=== PATIENT | female | born 1955 | race Caucasian/White ===

== ENCOUNTER 2018-08-12 16:22 | Outpatient (REF) | payer OTHER, SELFPAY ==
--- NOTE | 2018-08-12 14:45 | SKI_PTH ---
PATIENT: Tonie Poole LOC: [facility] #:[id number] AGE/SX: 63/F ROOM: RE08/12/[address]: Viki Roberts : 1955 BED: DIS: 08/12/2018 SPEC #: [id number] RECD: 08/13/18 12:28 STATUS: [place] REQ #: [id number] ANGELES: 08/12/18 14:[address]: Viki Roberts DEPT: Surgical Specimen RECD BY: Lizet Pierce ENTERED: 08/13/18 12:29 SP TYPE: DORCAS MARTIN DR: Emelia Morales Tissues: 1 - SKIN BIOPSY(SHAVE/PUNCH) 2 - SKIN BIOPSY(SHAVE/PUNCH) Procedures: SKIN LEVEL 4 SPECIAL STAIN 1 Comments: [id number]
== END 2018-08-12 16:42 ==
LOC: NCHCN 16:22
PROVIDERS: Visit Provider Nurse Practitioner Family
DX: L98.6 Other infiltrative disorders of the skin and subcutaneous tissue (principal)
CPT/HCPCS: 88305; 88312

== ENCOUNTER 2018-08-26 00:40 | Outpatient (CLI) | payer OTHER, SELFPAY ==
--- NOTE | 2018-08-26 09:26 | DI.RAD_ITS ---
SYMPTOM/DIAGNOSIS: CUTANEOUS SARCOIDOSIS D86.3 PA AND LATERAL CHEST: Comparison is made with 1994. The heart is normal in size. The lungs are clear. The mediastinal structures and pleura appear intact. CONCLUSION: Normal chest.
== END 2018-08-26 01:00 ==
PROVIDERS: Visit Provider Nurse Practitioner Family
DX: D86.3 Sarcoidosis of skin (principal)
CPT/HCPCS: 71046

== ENCOUNTER 2018-08-26 01:14 | Outpatient (CLI) | payer OTHER, SELFPAY ==
--- NOTE | 2018-08-26 06:26 | PFT_ITS ---
PULMONARY FUNCTION TEST REPORT NOTE PLEASE SEE SCANNED DOCUMENTS FOR MORE DETAIL Patient - Tonie Poole DATE OF - 1955 DATE OF SERVICE August 26, 2018 REQUESTING PROVIDER Viki Roberts NP INTERPRETATION OF STUDY Spirometry shows borderline mild obstructive airways disease. May represent a normal variant. No significant bronchodilator response. LUNG VOLUMES - Lung volumes show no evidence of restriction. DIFFUSION CAPACITY- Normal. AIRWAY RESISTANCE - Normal. IMPRESSION Likely overall normal pulmonary function study. Clinical correlation recommended. There may be borderline mild obstruction, but based on the patient' s age, this pulmonary function study is likely considered to be completely normal. Gina Howard M.D. JUSTUS/ciaran T - 08/26/2018 SEE SCANNED DOCUMENT IN THE EMR FOR DATA AND GRAPHS
[2018-08-26] MEDS: Inhaler, Assist Device 1 EACH MC (08:45)
[2018-08-26] MEDS: Albuterol HFA 18 GM 200 PUFF INH IH (08:46)
== END 2018-08-26 01:34 ==
PROVIDERS: Referring Provider Nurse Practitioner Family; Visit Provider Nurse Practitioner Family
DX: D86.3 Sarcoidosis of skin (principal); G47.39 Other sleep apnea; R51 Headache; E66.9 Obesity, unspecified
CPT/HCPCS: 94060; 94150; 94726; 94729

== ENCOUNTER 2018-08-27 16:35 | Outpatient (REF) | payer OTHER, SELFPAY ==
[2018-08-27 22:08] LABS: Abs Immature Grans 0.01 k/cumm (0.0-0.09); Absolute Basophil Count 0.05 k/cumm (0.0-0.2); Absolute Eosinophil Count 0.06 k/cumm (0.0-0.7); Absolute Monocyte Count 0.37 k/cumm (0.11-0.7); Absolute Neutrophil Count 4.39 k/cumm (1.2-6.7); Basophils % 0.8; HGB 11.8 g/dL (12.0-15.5); Immature Grans % 0.2; Mean Corp. HGB Concentration 32.8 g/dL (32.0-36.0); Mean Corpuscular Hemoglobin 31.1 pg (27.0-33.0); Mean Platelet Volume 10.8 fL (8.0-11.0); Platelet Count 255 x1000/uL (130-400); RBC 3.79 m/cumm (4.00-5.20); RBC Distribution Width 13.4 % (11.7-14.6); White Blood Cell Count 6.18 k/cumm (4.4-10.8)
[2018-08-27 22:47] LABS: ALT 27 U/L (12-78); AST 20 U/L (15-37); Albumin 3.6 g/dL (3.4-5.0); Alkaline Phosphatase 58 U/L (46-116); Anion Gap 10.5 mmol/L (3-11); BUN 15 mg/dL (7-18); Bilirubin, Total 0.3 mg/dL (0.2-1.0); CO2 27.5 mmol/L (21.0-32.0); CREATININE 0.75 mg/dL (0.55-1.02); Calcium 9.1 mg/dL (8.5-10.1); Chloride 101 mmol/L (98-107); Glucose 111 mg/dL (70-100); Potassium 4.5 mmol/L (3.5-5.1); Sodium 139 mmol/L (136-145)
== END 2018-08-27 16:55 ==
LOC: NCHCN 16:35
PROVIDERS: Visit Provider Nurse Practitioner Family
DX: R51 Headache (principal); R21 Rash and other nonspecific skin eruption; D86.3 Sarcoidosis of skin; E66.9 Obesity, unspecified
CPT/HCPCS: 80053; 85025

== ENCOUNTER 2019-02-27 15:08 | Outpatient (REF) | payer OTHER, SELFPAY ==
--- NOTE | 2019-02-27 14:15 | SKI_PTH ---
PATIENT: Tonie Poole LOC: [facility]N U#:[id number] AGE/SX: 63/F ROOM: RE02/27/[address]: Viki Roberts : 1955 BED: DIS: 02/27/2019 SPEC #: [id number] RECD: 02/28/19 12:33 STATUS: [place] REShasha #: [id number] ANGELES: 02/27/19 14:[address]: Viki Roberts DEPT: Surgical Specimen RECD BY: Lizet Pierce ENTERED: 02/28/19 12:34 SP TYPE: DORCAS MARTIN DR: Emelia Morales Tissues: 1 - SKIN BIOPSY(SHAVE/PUNCH) Procedures: SKIN LEVEL 4 Comments: [id number]
== END 2019-02-27 15:28 ==
LOC: NCHCN 15:08
PROVIDERS: Visit Provider Nurse Practitioner Family
DX: L43.8 Other lichen planus (principal)
CPT/HCPCS: 88305

== ENCOUNTER 2019-05-26 01:10 | Outpatient (CLI) | payer OTHER, SELFPAY ==
--- NOTE | 2019-05-26 14:00 | DI.MAMMO_ITS ---
SYMPTOM/DIAGNOSIS: SCREENING, Z12.31 MAMMOGRAMS: Mammograms were interpreted according to the usual protocol including computer analysis with CAD system, tomosynthesis and C view imaging. The breasts are of moderate density with fairly symmetrical distribution of fibroglandular tissue. No dominant mass or clumped microcalcification is identified in either breast. The current examination is compared with the previous examinations including 04/2018 and there has been no gross interval change in appearance in comparison with the previous studies. CONCLUSION: No specific evidence of malignancy at this time. Routine screening examinations are suggested at yearly intervals in this age group according to the ACS/ACR guidelines. Category 1. Breast density, category B. MQSA ASSESSMENT OF FINDINGS: Negative. Category 1. Patient will receive a letter notifying them of these results. BI-RADS category B. There are scattered areas of fibroglandular density.
== END 2019-05-26 01:30 ==
PROVIDERS: Visit Provider Nurse Practitioner Family
DX: Z12.31 Encounter for screening mammogram for malignant neoplasm of breast (principal)
CPT/HCPCS: 77063; 77067

== ENCOUNTER 2019-07-31 09:57 | Outpatient (REF) | payer OTHER, SELFPAY ==
[2019-07-31 11:48] LABS: BUN 15 mg/dL (7-18); CREATININE 0.78 mg/dL (0.55-1.02); Calcium 9.3 mg/dL (8.5-10.1); Calculated LDL 121 mg/dL; Chloride 104 mmol/L (98-107); Cholesterol 222 mg/dL (50-200); Glucose 90 mg/dL (70-100); HDL Cholesterol 94 mg/dL (40-60); Magnesium 1.7 mg/dL (1.8-2.4); Potassium 4.6 mmol/L (3.5-5.1); Sodium 140 mmol/L (136-145); Triglyceride 39 mg/dL (30-150)
[2019-07-31 11:51] LABS: Hemoglobin A1C 5.7 % (4.5-6.2)
[2019-07-31 12:10] LABS: ESR 7 mm/hr (0-30)
[2019-07-31 12:12] LABS: C-Reactive Protein 0.09 mg/dL (0.0-0.3)
[2019-08-01 11:28] LABS: Rheumatoid Factor 9 IU/mL (<12.5)
[2019-08-01 13:41] LABS: ANA Interpretation Negative (NEGAT)
== END 2019-07-31 10:17 ==
LOC: NCHCN 09:57
PROVIDERS: PCP Nurse Practitioner Family; Visit Provider Nurse Practitioner Family
DX: G47.62 Sleep related leg cramps (principal); J30.2 Other seasonal allergic rhinitis; R51 Headache; F32.9 Major depressive disorder, single episode, unspecified; G47.39 Other sleep apnea; E66.9 Obesity, unspecified; D86.3 Sarcoidosis of skin
CPT/HCPCS: 80048; 80061; 85652; 83036; 83735; 86038; 86140; 86431

== ENCOUNTER 2019-11-06 09:56 | Outpatient (REF) | payer OTHER, SELFPAY ==
[2019-11-06 12:52] LABS: ALT 24 U/L (14-59); AST 21 U/L (15-37); Alkaline Phosphatase 46 U/L (46-116); Anion Gap 8.4 mmol/L (3-11); BUN 17 mg/dL (7-18); Bilirubin, Total 0.4 mg/dL (0.2-1.0); CO2 29.6 mmol/L (21.0-32.0); CREATININE 0.79 mg/dL (0.55-1.02); Calcium 9.2 mg/dL (8.5-10.1); Chloride 104 mmol/L (98-107); Glucose 75 mg/dL (74-106); Magnesium 1.8 mg/dL (1.8-2.4); Potassium 4.1 mmol/L (3.5-5.1); Sodium 142 mmol/L (136-145); Total Protein 7.1 g/dL (6.4-8.2)
== END 2019-11-06 10:16 ==
LOC: NCHCN 09:56
PROVIDERS: PCP Nurse Practitioner Family; Visit Provider Nurse Practitioner Family
DX: R10.11 Right upper quadrant pain (principal); E78.5 Hyperlipidemia, unspecified; R73.03 Prediabetes; F32.9 Major depressive disorder, single episode, unspecified; E83.42 Hypomagnesemia; R07.89 Other chest pain; R51 Headache; K30 Functional dyspepsia
CPT/HCPCS: 80053; 83735

== ENCOUNTER 2019-11-24 01:23 | Outpatient (CLI) | payer OTHER, SELFPAY ==
--- NOTE | 2019-11-24 07:03 | DI.US_ITS ---
EXAM: US ABDOMEN CLINICAL HISTORY: RUQ PAIN, R10.11, DYSPEPSIA, K30,CHEST TIGHTNESS, TECHNIQUE: Ultrasound abdomen performed using standard protocol. COMPARISON: No exams were available for comparison FINDINGS: LIVER: Normal size and echogenicity. No focal liver lesions are seen.. GALLBLADDER: No evidence of cholelithiasis. No evidence of wall thickening. No pericholecystic fluid identified. KIDNEYS: Kidneys are symmetric in size. No evidence of renal calculi. No evidence of hydronephrosis. No renal mass or cyst identified. BILIARY SYSTEM: No intrahepatic or extrahepatic biliary ductal dilation. AG'S SIGN: Negative. PANCREAS: Normal where visualized. SPLEEN: Not enlarged. ABDOMINAL AORTA AND IVC: Visualized portions normal caliber. ASCITES: None seen. IMPRESSION: Normal sonographic appearance of the upper abdomen.
== END 2019-11-24 01:43 ==
PROVIDERS: PCP Nurse Practitioner Family; Visit Provider Nurse Practitioner Family
DX: R10.11 Right upper quadrant pain (principal); K30 Functional dyspepsia; R07.89 Other chest pain
CPT/HCPCS: 76700

== ENCOUNTER 2020-05-13 09:59 | Outpatient (REF) | payer OTHER, SELFPAY | END 2020-05-13 10:19 | LOC: NCHCN 09:59 | PROVIDERS: PCP Nurse Practitioner Family; Visit Provider Nurse Practitioner Family | DX: R10.11 Right upper quadrant pain (principal); E83.42 Hypomagnesemia; E78.5 Hyperlipidemia, unspecified; R73.03 Prediabetes; J30.2 Other seasonal allergic rhinitis; I86.8 Varicose veins of other specified sites; K30 Functional dyspepsia; G47.62 Sleep related leg cramps | CPT/HCPCS: 83735 ==

== ENCOUNTER 2020-10-29 09:54 | Outpatient (REF) | payer OTHER, SELFPAY ==
--- NOTE | 2020-10-29 09:15 | PAPFT_PTH ---
PATIENT: Tonie Poole LOC: [facility]#:[id number] AGE/SX: 65/F ROOM: RE10/29/[address]: Viki Roberts : 1955 BED: DIS: 10/29/2020 SPEC #: [id number] RECD: 11/01/20 12:44 STATUS: [place] REShasha #: [id number] ANGELES: 10/29/20 09:[address]: Viki Roberts DEPT: [facility] Cytology RECD BY: Lizet Pierce Tissues: 1 - CX/ENDOCX FOR PAP SMEARS Procedures: PAP THIN PREP/UVM Screening HPV DNA PROBE Comments: [id number]
== END 2020-10-29 10:14 ==
LOC: NCHCN 09:54
PROVIDERS: PCP Nurse Practitioner Family; Visit Provider Nurse Practitioner Family
DX: Z12.4 Encounter for screening for malignant neoplasm of cervix (principal); Z11.51 Encounter for screening for human papillomavirus (HPV)
CPT/HCPCS: 88142; 87624

== ENCOUNTER 2020-11-10 01:10 | Outpatient (CLI) | payer OTHER, SELFPAY ==
--- NOTE | 2020-11-10 08:23 | DI.MAMMO_ITS ---
EXAM: MG MAMMO SCREENING CLINICAL HISTORY: SCREENING, Z12.31 TECHNIQUE: Bilateral full field digital CC and MLO mammographic images were obtained with 3D tomosyn thesis and utilizing computer aided detection (CAD). COMPARISON: Available for comparison. FINDINGS: Masses/Architectural Distortion: None seen. Microcalcifications: No suspicious pleomorphic-type are seen. Skin Thickening/Nipple Retraction: None. IMPRESSION: 1. No significant interval change with no specific features of malignancy noted. 2. Unless there is more urgent need, screening mammography is recommended, as per [employer] guidelines. BI-RADS Category 1 - Negative Breast Density - Category B - Scattered areas of fibroglandular density Breast density category C or D implies that the patient has dense breast tissue. Dense breast tissue is very common and is not abnormal but dense breast tissue can make it harder to find cancer on a ma mmogram. Also, dense breast tissue may increase their breast cancer risk. This information about the result of the mammogram report was provided to the patient to raise their awareness. Use this report when you speak with the patient about their risks for breast cancer, which includes their family hist ory. At that time, you may recommend for more screening tests (Ultrasound or MRI) as they might be us eful based on their risk. A negative radiographic report should not delay biopsy if a dominant or clinically suspicious mass is present. Up to ten percent of cancers are not identified on mammography. A negative report may reinforce clinical impression. Adenosis and dense breasts may obscure an underlying neoplasm. False positive reports average 6 to 10%. Patient will receive a letter notifying them of these results.
== END 2020-11-10 01:30 ==
PROVIDERS: PCP Nurse Practitioner Family; Visit Provider Nurse Practitioner Family
DX: Z12.31 Encounter for screening mammogram for malignant neoplasm of breast (principal)
CPT/HCPCS: 77063; 77067

== ENCOUNTER 2021-05-05 09:00 | Outpatient (REF) | payer OTHER, SELFPAY ==
[2021-05-05 14:18] LABS: Anion Gap 6.1 mmol/L (3-11); BUN 16 mg/dL (7-18); CO2 29.9 mmol/L (21.0-32.0); CREATININE 0.7 mg/dL (0.55-1.02); Calcium 9.1 mg/dL (8.5-10.1); Calculated LDL 117 mg/dL (<100); Chloride 103 mmol/L (98-107); Cholesterol 203 mg/dL (<200); Glucose 94 mg/dL (74-106); HDL Cholesterol 80 mg/dL (40-60); Magnesium 1.8 mg/dL (1.8-2.4); Potassium 4.5 mmol/L (3.5-5.1); Sodium 139 mmol/L (136-145); Triglyceride 33 mg/dL (<150); Vitamin B12 363 pg/mL (193-986)
== END 2021-05-05 09:01 | disposition home or self-care (01) ==
LOC: NCHCN 09:00
PROVIDERS: PCP Nurse Practitioner Family; Visit Provider Nurse Practitioner Family
DX: E78.5 Hyperlipidemia, unspecified (principal); E83.42 Hypomagnesemia; R00.2 Palpitations; K30 Functional dyspepsia; R51.9 Headache, unspecified; G47.62 Sleep related leg cramps; M19.049 Primary osteoarthritis, unspecified hand
CPT/HCPCS: 80048; 80061; 82607; 83735

== ENCOUNTER 2021-09-27 01:29 | Outpatient (RCR) | payer OTHER, SELFPAY ==
--- NOTE | 2021-09-27 08:00 | HOLTER_ITS ---
APPROVED REPORT Conclusion This was a 48-hour Holter monitor ordered for palpitations and chest tightness Rhythm throughout was sinus with an average heart rate of 64. Minimum was 52, maximum 102 There were 2 isolated PVCs There were very rare atrial premature beats There was no atrial fibrillation, no high-grade AV block, no pauses greater than 3 seconds Patient symptoms corresponded to sinus rhythm in the low 70s
== END 2021-10-18 23:59 | disposition home or self-care (01) ==
LOC: RT 01:29
PROVIDERS: PCP Nurse Practitioner Family; Visit Provider Nurse Practitioner Family
DX: R06.09 Other forms of dyspnea (principal); R53.83 Other fatigue; R00.2 Palpitations; R07.89 Other chest pain; I49.3 Ventricular premature depolarization
CPT/HCPCS: 93225; 93226

== ENCOUNTER 2021-09-29 01:22 | Outpatient (CLI) | payer OTHER, SELFPAY ==
--- NOTE | 2021-09-29 08:05 | DI.RAD_ITS ---
Exam(s) XR CHEST 2V PA LATERAL EXAM: XR CHEST 2V PA LATERAL CLINICAL HISTORY: EXERTIONAL SOB R06.09FATIGUE R53.83 MGKGFSHWLAYH21.0 CHEST TIGHTNESS R07.89 TECHNIQUE: 2D digital imaging was performed. COMPARISON: CR XR CHEST 2V PA LATERAL from 08/26/2018 FINDINGS: MEDIASTINUM: Normal. HEART: Normal. PULMONARY VASCULATURE: Normal. LUNGS: Hyperinflated but clear. PLEURAL SPACE: No pleural effusion or pneumothorax. BONE:Unremarkable for age. IMPRESSION: No acute abnormality. DATA REPOSITORY: RADIATION DOSE DELIVERED:
== END 2021-09-29 01:42 ==
PROVIDERS: PCP Nurse Practitioner Family; Visit Provider Nurse Practitioner Family
DX: R00.2 Palpitations (principal); R07.89 Other chest pain; R06.09 Other forms of dyspnea; R53.83 Other fatigue
CPT/HCPCS: 71046

== ENCOUNTER 2021-09-29 02:22 | Outpatient (CLI) | payer OTHER, SELFPAY ==
[2021-09-29 10:49] LABS: Abs Immature Grans 0.01 10^3/uL (0.0-0.06); Absolute Basophil Count 0.03 10^3/uL (0.0-0.2); Absolute Eosinophil Count 0.09 10^3/uL (0.0-0.7); Absolute Lymphocyte Count 0.91 10^3/uL (1.2-3.4); Absolute Monocyte Count 0.51 10^3/uL (0.1-0.8); Absolute Neutrophil Count 2.57 10^3/uL (1.2-6.7); Basophils % 0.7; Eosinophils % 2.2; HGB 12.5 g/dL (11.2-15.7); Immature Grans % 0.2; Lymphocytes % 22.1; MCH 30.3 pg (27.0-33.0); MCHC 32.9 % (32.0-36.0); MCV 92.2 fL (80-95); MPV 10.2 fL (8.0-11.0); Monocytes % 12.4; Neutrophils % 62.4; Nucleated RBC 0 %; Platelet Count 208 10^3/uL (130-400); RBC 4.12 10^6/uL (3.93-5.22); RDW 12.8 % (11.7-14.6); RDW-SD 43.8 fL; WBC 4.12 10^3/uL (4.4-10.8)
[2021-09-29 11:13] LABS: Alkaline Phosphatase 48 U/L (46-116); BUN 14 mg/dL (7-18); Bilirubin, Total 0.4 mg/dL (0.2-1.0); CREATININE 0.7 mg/dL (0.55-1.02); Calcium 8.9 mg/dL (8.5-10.1); Glucose 98 mg/dL (74-106); Total Protein 7.6 g/dL (6.4-8.2)
[2021-09-29 11:14] LABS: ALT 26 U/L (14-59); AST 18 U/L (15-37); Anion Gap 7.1 mmol/L (3-11); CO2 27.9 mmol/L (21.0-32.0); Chloride 101 mmol/L (98-107); Potassium 4.4 mmol/L (3.5-5.1); Sodium 136 mmol/L (136-145); Troponin I < 0.05 ng/mL (<0.06)
[2021-09-29 12:24] LABS: Ferritin 134 ng/mL (8-252)
[2021-09-29 13:28] LABS: Iron 58 ug/dL (50-170); Total Iron Binding Capacity 319 ug/dL (250-450); Transferrin Sat 18 % (15-50)
[2021-09-30 17:27] LABS: Creatine Kinase 122 U/L (26 - 192)
[2021-10-05 09:00] LABS: BB Fraction 0 % (0); MB Fraction 0 % (0); MM Fraction 100 % (100)
== END 2021-09-29 02:23 | disposition home or self-care (01) ==
LOC: LBO 02:22
PROVIDERS: PCP Nurse Practitioner Family; Visit Provider Nurse Practitioner Family
DX: R00.2 Palpitations (principal); R06.09 Other forms of dyspnea; R07.89 Other chest pain; R53.83 Other fatigue
CPT/HCPCS: 36415; 80053; 82550; 82552; 82728; 83540; 83550; 84443; 84484; 85025

== ENCOUNTER 2021-10-03 01:36 | Outpatient (CLI) | payer OTHER, SELFPAY ==
--- NOTE | 2021-10-03 08:00 | ETT_ITS ---
APPROVED REPORT Exam: Exercise Treadmill Patient Location: Out-Patient Room/Bed: Stress Nurse: Dina Bass RN Ordering Provider:HUI RINCON, Contact Number: [phone] BMI: 30.03 Baseline Rhythm: Sinus Rhythm Comment: Incomplete RBBB Indications: Exertional SOB, fatigue, palpitations, chest tightness Medical History Medical History: Abnormal EKG, dyspepsia, palpitations, chest tightness, hyperlipidemia, hypomagnesem ia, obesity, RACHEL, depression Cardiac Medications: Magnesium chloride Allergies: Sulfa Cardiac Risk Factors: Hyperlipidemia, obesity, family hx Previous Cardiac Procedures: None Pretest Chest Pain Characteristics: None Exercise History: Physically active Physical Disabilities: None Lung Sounds: Clear to auscultation Heart Sounds: Regular Stress Test Details Test: Exercise stress testing was performed using a Henry protocol. Rest Stress HR Resting HR Supine: 60 bpm Max Heart Rate (APMHR): 156 bpm Resting HR Standin bpm Target HR (85% APMHR): 132 bpm Max HR Achieved: 150 bpm % of APMHR: 96 Recovery HR: 71 bpm HR response to stress: Normal HR response to stress BP Resting BP Supine: 138/78 mmHg Resting BP Standin/78 mmHg Max BP: 178/72 mmHg Recovery BP: 142/70 mmHg BP response to stress: Normal blood pressure response to stress. ECG Resting ECG: Sinus Rhythm, Incomplete RBBB Ectopy: None Stress ECG: Sinus Tachycardia, Incomplete RBBB ST Change: No significant ST segment changes noted Arrhythmia: None Recovery ECG: Sinus Rhythm, Incomplete RBBB Recovery ST Change: No significant ST segment changes noted Recovery Arrhythmia: Occasional PACs Clinical Reason for Termination: Fatigue, Dyspnea Stress Symptoms: General Fatigue, Dyspnea Exercise duration: 9 min21 sec Exercise capacity: 10.73 METs Brothers Treadmill Score: 8.0 Rate Pressure Product: 10840 Stress ECG Conclusion 1. The resting electrocardiogram was within normal limits 2. Patient exercised on the Henry protocol and completed a workload of 10.73 METS, limited by fatigue 3. Normal heart rate and blood pressure response to exercise. The patient achieved 96% of predicted heart rate for age 4. Electrocardiographically the test was negative for myocardial ischemia 5. Occasional atrial premature beats were seen Brothers Treadmill Score is 8.0 which is Low risk. Stress Test Summary STAGE Time (mins) Speed (mph) Grade (%) HR BP SYMPTOMS METS Supine 60 138/78 Standing 65 128/78 SpO2 96% 1 3 1.7 10 99 148/70 SpO2 94% 4.6 2 6 2.5 12 130 150/68 SpO2 94% 7 3 9 3.4 14 148 Mild dyspnea, SpO2 94% 10.2 1 min recovery 119 178/72 Symptoms resolved, SpO2 97% 3 min recovery 83 184/74 SpO2 97% 6 min recovery 71 142/70 SpO2 95%
== END 2021-10-03 01:56 ==
PROVIDERS: PCP Nurse Practitioner Family; Visit Provider Nurse Practitioner Family
DX: R06.09 Other forms of dyspnea (principal); R53.83 Other fatigue; R00.2 Palpitations; R07.89 Other chest pain; I45.19 Other right bundle-branch block; E78.5 Hyperlipidemia, unspecified; Z82.49 Family history of ischemic heart disease and other diseases of the circulatory system; E66.9 Obesity, unspecified; I49.1 Atrial premature depolarization
CPT/HCPCS: 93017

== ENCOUNTER → 2022-02-17 00:46 | Outpatient (CLI) | payer OTHER, SELFPAY ==
--- NOTE | 2022-02-17 10:27 | DI.RAD_ITS ---
Exam(s) XR SHOULDER LT COMPLETE 2+V EXAM: XR SHOULDER LT COMPLETE 2+V CLINICAL HISTORY: LT SHOULDER JT PAIN, M25.512. TECHNIQUE: 2D digital imaging was performed of the left shoulder. Five images were obtained. AP, G rashey, Y-view and axillary views were obtained. COMPARISON: No exams were available for comparison FINDINGS: BONES: No acute fracture is present. No bony destructive lesion is seen. JOINTS: No dislocation present. SOFT TISSUE: Normal. IMPRESSION: Unremarkable radiographs of the left shoulder. DATA REPOSITORY: RADIATION DOSE DELIVERED:
== END ==
PROVIDERS: PCP Nurse Practitioner Family; Visit Provider Family Medicine
DX: M25.512 Pain in left shoulder (principal)
CPT/HCPCS: 73030

== ENCOUNTER 2022-05-01 11:11 | Outpatient (REF) | payer OTHER, SELFPAY ==
[2022-05-01 15:51] LABS: Anion Gap 10.1 mmol/L (3-11); BUN 18 mg/dL (7-18); CO2 23.9 mmol/L (21.0-32.0); CREATININE 0.6 mg/dL (0.55-1.02); Calcium 9.1 mg/dL (8.5-10.1); Chloride 99 mmol/L (98-107); Glucose 92 mg/dL (74-106); Magnesium 1.8 mg/dL (1.8-2.4); Potassium 4.6 mmol/L (3.5-5.1); Sodium 133 mmol/L (136-145)
[2022-05-01 16:40] LABS: Vitamin B12 324 pg/mL (193-986)
== END 2022-05-01 11:12 | disposition home or self-care (01) ==
LOC: NCHCN 11:11
PROVIDERS: PCP Nurse Practitioner Family; Visit Provider Nurse Practitioner Family
DX: E78.5 Hyperlipidemia, unspecified (principal); E83.42 Hypomagnesemia; M25.512 Pain in left shoulder; I86.8 Varicose veins of other specified sites; K30 Functional dyspepsia
CPT/HCPCS: 80048; 82607; 83735

== ENCOUNTER 2022-05-15 17:53 | Outpatient (REF) | payer OTHER, SELFPAY ==
[2022-05-15 15:10] LABS: Anion Gap 7.5 mmol/L (3-11); BUN 18 mg/dL (7-18); CO2 26.5 mmol/L (21.0-32.0); CREATININE 0.7 mg/dL (0.55-1.02); Calcium 8.9 mg/dL (8.5-10.1); Chloride 100 mmol/L (98-107); Glucose 98 mg/dL (74-106); Potassium 4.8 mmol/L (3.5-5.1); Sodium 134 mmol/L (136-145)
== END 2022-05-15 17:54 | disposition home or self-care (01) ==
LOC: NCHCN 17:53
PROVIDERS: PCP Nurse Practitioner Family; Visit Provider Nurse Practitioner Family
DX: E87.1 Hypo-osmolality and hyponatremia (principal)
CPT/HCPCS: 80048

== ENCOUNTER 2022-05-29 15:16 | Outpatient (REF) | payer OTHER, SELFPAY ==
[2022-05-29 20:13] LABS: ALT 27 U/L (14-59); AST 21 U/L (15-37); Albumin 3.9 g/dL (3.4-5.0); Alkaline Phosphatase 43 U/L (46-116); Anion Gap 9.8 mmol/L (3-11); BUN 16 mg/dL (7-18); Bilirubin, Total 0.3 mg/dL (0.2-1.0); CO2 26.2 mmol/L (21.0-32.0); CREATININE 0.7 mg/dL (0.55-1.02); Chloride 105 mmol/L (98-107); Glucose 97 mg/dL (74-106); Sodium 141 mmol/L (136-145); Total Protein 6.8 g/dL (6.4-8.2)
[2022-05-30 17:50] LABS: Osmolality Serum 287 mOsm/kg (275-295)
== END 2022-05-29 15:17 | disposition home or self-care (01) ==
LOC: NCHCN 15:16
PROVIDERS: PCP Nurse Practitioner Family; Visit Provider Nurse Practitioner Family
DX: E87.1 Hypo-osmolality and hyponatremia (principal)
CPT/HCPCS: 80053; 83930

== ENCOUNTER 2022-05-31 15:14 | Outpatient (REF) | payer OTHER, SELFPAY ==
[2022-05-31 10:22] LABS: Sodium, Urine 38 mmol/L
[2022-05-31 10:26] LABS: CLEAVED CELLS 106 mmol/24h (40-220); Total Volume 2800 ml
== END 2022-05-31 15:15 | disposition home or self-care (01) ==
LOC: NCHCN 15:14
PROVIDERS: PCP Nurse Practitioner Family; Visit Provider Nurse Practitioner Family
DX: E87.1 Hypo-osmolality and hyponatremia (principal)
CPT/HCPCS: 81050; 84300

== ENCOUNTER → 2022-06-23 00:39 | Outpatient (CLI) | payer MEDICARE, SELFPAY ==
--- NOTE | 2022-06-23 | DI.US_ITS ---
Exam(s) US RENAL EXAM: US RENAL CLINICAL HISTORY: MILD HYPONATREMIA, E87.1. TECHNIQUE: Mckenzie scale, color and spectral Doppler were used. COMPARISON: No exams were available for comparison FINDINGS: Renal size in cm: Right: 10.6. Left: 9.8. Echogenicity: Normal. Hydronephrosis: No. Cyst or mass: No. Nephrolithiasis: No. Other findings: None. Bladder:Normal. Ureteral jets: Right: Not visualized on this examination. Left: Visualized and unremarkable. Prevoid vol:116 cc Postvoid vol:0 cc Renal color flow: Symmetric and within normal limits. IMPRESSION: Unremarkable examination. DATA REPOSITORY:
== END ==
PROVIDERS: PCP Nurse Practitioner Family; Visit Provider Nurse Practitioner Family
DX: E87.1 Hypo-osmolality and hyponatremia (principal)
CPT/HCPCS: 76770

== ENCOUNTER 2022-10-27 11:25 | Outpatient (REF) | payer MEDICARE, SELFPAY ==
[2022-10-27 14:23] LABS: Anion Gap 6.8 mmol/L (3-11); BUN 19 mg/dL (7-18); CO2 28.2 mmol/L (21.0-32.0); CREATININE 0.8 mg/dL (0.55-1.02); Chloride 99 mmol/L (98-107); Estimated GFR 81.72 (mL/min/1.73m2); Glucose 113 mg/dL (74-106); Sodium 134 mmol/L (136-145)
== END 2022-10-27 11:26 | disposition home or self-care (01) ==
LOC: NCHCN 11:25
PROVIDERS: PCP Nurse Practitioner Family; Visit Provider Nurse Practitioner Family
DX: E87.1 Hypo-osmolality and hyponatremia (principal)
CPT/HCPCS: 80048

== ENCOUNTER 2022-12-15 00:37 | Outpatient (CLI) | payer MEDICARE, BC, SELFPAY ==
--- NOTE | 2022-12-15 | DI.DEXA_ITS ---
Exam(s) XR DEXA BONE DENSITY W/WO CAIT EXAM: XR DEXA BONE DENSITY W/WO CAIT CLINICAL HISTORY: SCREENING FOR OSTEOPOROSIS IN POSTMENOPAUSAL WOMAN,Z78.0 TECHNIQUE: COMPARISON: No exams were available for comparison FINDINGS: Lateral Spine Image: Unremarkable. No compression deformities identified. Left hip: Total T-Score: 0.1 Total Z-Score: 1.3 T- and Z-scores: Within normal limits. Lumbar Spine: Total T-Score: 1.0 Total Z-Score: 2.8 T- and Z-scores: Within normal limits. IMPRESSION: No evidence of osteoporosis.
== END 2022-12-15 00:57 ==
PROVIDERS: PCP Nurse Practitioner Family; Visit Provider Nurse Practitioner Family
DX: Z13.820 Encounter for screening for osteoporosis (principal); Z78.0 Asymptomatic menopausal state
CPT/HCPCS: 77080

== ENCOUNTER 2023-01-25 09:54 | Outpatient (REF) | payer MEDICARE, BC, SELFPAY ==
--- NOTE | 2023-01-25 08:50 | PAPFT_PTH ---
PATIENT: Tonie Poole LOC: [facility]#:[id number] AGE/SX: 67/F ROOM: RE01/25/[address]: Viki Roberts : 1955 BED: DIS: 01/25/2023 SPEC #: [id number] RECD: 01/25/23 18:38 STATUS: [place] REQ #: [id number] ANGELES: 01/25/23 08:[address]: Viki Roberts DEPT: [facility] Cytology RECD BY: Lizet Pierce Tissues: 1 - CX/ENDOCX FOR PAP SMEARS Procedures: PAP THIN PREP/UVM Screening HPV DNA PROBE Comments: [id number]
== END 2023-01-25 09:55 | disposition home or self-care (01) ==
LOC: NCHCN 09:54
PROVIDERS: PCP Nurse Practitioner Family; Visit Provider Nurse Practitioner Family
DX: Z11.51 Encounter for screening for human papillomavirus (HPV); Z01.419 Encounter for gynecological examination (general) (routine) without abnormal findings
CPT/HCPCS: 88142; 87624

== ENCOUNTER 2023-02-01 01:24 | Outpatient (CLI) | payer MEDICARE, BC, SELFPAY ==
--- NOTE | 2023-02-01 07:45 | DI.MAMMO_ITS ---
Exam(s) MAMMO SCREENING EXAM: MAMMO SCREENING CLINICAL HISTORY: SCREENING, Z12.31 TECHNIQUE: Mammograms were interpreted according to the usual protocol including computer analysis w [employer] CAD system, tomosynthesis and C-view imaging. COMPARISON: 2012 through 2019 FINDINGS: The breasts are composed of scattered fibroglandular densities, Breast Density category B. No suspicious masses or suspicious microcalcifications are seen. No skin thickening or abnormal axillary lymph nodes are seen. There has been no significant change from prior exams. IMPRESSION: BI-RADS Category 1, Negative mammogram Yearly screening mammography is recommended. Breast Density - Category B, scattered fibroglandular densities. A negative radiographic report should not delay biopsy if a dominant or clinically suspicious mass is present. Up to ten percent of cancers are not identified on mammography. A negative report may reinforce clinical impression. Adenosis and dense breasts may obscure an underlying neoplasm. False positive reports average 6 to 10%. Patient will receive a letter notifying them of these results.
== END 2023-02-01 01:44 ==
LOC: DI 01:25
PROVIDERS: PCP Nurse Practitioner Family; Visit Provider Nurse Practitioner Family
DX: Z12.31 Encounter for screening mammogram for malignant neoplasm of breast (principal)
CPT/HCPCS: 77063; 77067

== ENCOUNTER 2023-05-25 10:48 | Outpatient (REF) | payer MEDICARE, BC, SELFPAY ==
[2023-05-25 15:07] LABS: Anion Gap 6.8 mmol/L (3-11); BUN 21 mg/dL (7-18); CO2 27.2 mmol/L (21.0-32.0); CREATININE 0.8 mg/dL (0.55-1.02); Calculated LDL 110 mg/dL (<100); Chloride 99 mmol/L (98-107); Cholesterol 199 mg/dL (<200); Estimated GFR 81.72 (mL/min/1.73m2); Glucose 100 mg/dL (74-106); HDL Cholesterol 84 mg/dL (40-60); Magnesium 1.9 mg/dL (1.8-2.4); Potassium 5.5 mmol/L (3.5-5.1); Sodium 133 mmol/L (136-145); TSH (W/Ref FT4) 1.32 uIU/mL (0.36-3.74); Triglyceride 27 mg/dL (<150); Vitamin B12 373 pg/mL (193-986)
== END 2023-05-25 10:49 | disposition home or self-care (01) ==
LOC: NCHCN 10:48
PROVIDERS: PCP Nurse Practitioner Family; Visit Provider Nurse Practitioner Family
DX: E78.5 Hyperlipidemia, unspecified (principal); E87.1 Hypo-osmolality and hyponatremia; K30 Functional dyspepsia; E66.9 Obesity, unspecified; E83.42 Hypomagnesemia
CPT/HCPCS: 80048; 80061; 82607; 83735; 84443

== ENCOUNTER 2023-05-28 01:38 | Outpatient (CLI) | payer MEDICARE, BC, SELFPAY ==
--- NOTE | 2023-05-28 10:19 | DI.RAD_ITS ---
Exam(s) XR HIP LT COMPLETE AP PELVIS EXAM: XR HIP LT COMPLETE AP PELVIS CLINICAL HISTORY: LT HIP PAIN, M25.552. TECHNIQUE: 2D digital imaging was performed. COMPARISON: No exams were available for comparison FINDINGS: 3 views No evidence of pelvic nor hip fracture. Minimal degenerative changes. No osseous lesions. Incident ally noted is significant disc space narrowing at L4-5 level. IMPRESSION: No hip fracture nor obvious degenerative changes in the hips. Degenerative disc disease. DATA REPOSITORY: RADIATION DOSE DELIVERED:
--- NOTE | 2023-05-28 10:29 | DI.RAD_ITS ---
Exam(s) XR LUMBAR SPINE COMPLETE EXAM: XR LUMBAR SPINE COMPLETE CLINICAL HISTORY: PAIN. TECHNIQUE: 2D digital imaging was performed. COMPARISON: CR XR DEXA BONE DENSITY W/WO CAIT from 12/15/2022 FINDINGS: Five views No evidence of fracture or listhesis. No pars defects. There is advanced disc space narrowing at L4 -5 level. Also mild retrolisthesis L4 upon L5. Only mild facet joint arthropathy at this level note d. There is moderate disc space narrowing at L2-3 and L3-4 levels. Relative preservation of disc height at L5-S1 is noted. There is no scoliosis. No osseous lesions. SI joints appear unremarkable. IMPRESSION: Degenerative disc disease, most evident at L4-5 level. DATA REPOSITORY: RADIATION DOSE DELIVERED:
== END 2023-05-28 01:58 ==
LOC: DI 01:39
PROVIDERS: PCP Nurse Practitioner Family; Visit Provider Nurse Practitioner Family
DX: M54.59 Other low back pain (principal); M51.36 Other intervertebral disc degeneration, lumbar region; M25.552 Pain in left hip
CPT/HCPCS: 72110; 73502

== ENCOUNTER 2023-05-30 16:57 | Outpatient (REF) | payer MEDICARE, BC, SELFPAY ==
[2023-05-30 21:25] LABS: Anion Gap 7.4 mmol/L (3-11); BUN 20 mg/dL (7-18); CO2 26.6 mmol/L (21.0-32.0); CREATININE 0.9 mg/dL (0.55-1.02); Calcium 9.1 mg/dL (8.5-10.1); Chloride 99 mmol/L (98-107); Estimated GFR 70.95 (mL/min/1.73m2); Glucose 120 mg/dL (74-106); Potassium 5.8 mmol/L (3.5-5.1); Sodium 133 mmol/L (136-145)
== END 2023-05-30 16:58 | disposition home or self-care (01) ==
LOC: NCHCN 16:57
PROVIDERS: PCP Nurse Practitioner Family; Visit Provider Nurse Practitioner Family
DX: E87.5 Hyperkalemia (principal)
CPT/HCPCS: 80048

== ENCOUNTER 2023-06-11 16:09 | Outpatient (REF) | payer MEDICARE, BC, SELFPAY ==
[2023-06-11 16:41] LABS: Anion Gap 9.9 mmol/L (3-11); BUN 18 mg/dL (7-18); CO2 26.1 mmol/L (21.0-32.0); CREATININE 0.8 mg/dL (0.55-1.02); Calcium 9.3 mg/dL (8.5-10.1); Chloride 103 mmol/L (98-107); Estimated GFR 81.72 (mL/min/1.73m2); Glucose 99 mg/dL (74-106); Potassium 5.3 mmol/L (3.5-5.1); Sodium 139 mmol/L (136-145)
== END 2023-06-11 16:10 | disposition home or self-care (01) ==
LOC: NCHCN 16:09
PROVIDERS: PCP Nurse Practitioner Family; Visit Provider Nurse Practitioner Family
DX: E87.5 Hyperkalemia (principal)
CPT/HCPCS: 80048

== ENCOUNTER 2023-06-20 18:04 | Outpatient (REF) | payer MEDICARE, BC, SELFPAY ==
[2023-06-20 16:07] LABS: Abs Immature Grans 0.01 10^3/uL (0.0-0.06); Absolute Basophil Count 0.05 10^3/uL (0.0-0.2); Absolute Eosinophil Count 0.11 10^3/uL (0.0-0.7); Absolute Lymphocyte Count 1.03 10^3/uL (1.2-3.4); Absolute Monocyte Count 0.35 10^3/uL (0.1-0.8); Absolute Neutrophil Count 1.67 10^3/uL (1.2-6.7); Basophils % 1.6; Eosinophils % 3.4; HCT 39.1 % (36.0-46.0); HGB 13.1 g/dL (11.2-15.7); Immature Grans % 0.3; MCH 31.3 pg (27.0-33.0); MCHC 33.5 % (32.0-36.0); MCV 93 fL (80-95); MPV 10.5 fL (8.0-11.0); Monocytes % 10.9; Neutrophils % 51.8; Platelet Count 240 10^3/uL (130-400); RBC 4.19 10^6/uL (3.93-5.22); RDW 12.9 % (11.7-14.6); RDW-SD 44.2 fL; WBC 3.22 10^3/uL (4.4-10.8)
[2023-06-20 16:28] LABS: Anion Gap 8.4 mmol/L (3-11); BUN 15 mg/dL (7-18); CO2 26.6 mmol/L (21.0-32.0); CREATININE 0.7 mg/dL (0.55-1.02); Calcium 8.9 mg/dL (8.5-10.1); Chloride 101 mmol/L (98-107); Estimated GFR 95.92 (mL/min/1.73m2); Glucose 93 mg/dL (74-106); Hemoglobin A1C 5.5 % (<5.7); Sodium 136 mmol/L (136-145)
== END 2023-06-20 18:05 | disposition home or self-care (01) ==
LOC: NCHCN 18:04
PROVIDERS: PCP Nurse Practitioner Family; Visit Provider Nurse Practitioner Family
DX: E87.5 Hyperkalemia (principal); E66.9 Obesity, unspecified
CPT/HCPCS: 80048; 83036; 85025

== ENCOUNTER 2023-07-18 09:26 | Outpatient (REF) | payer MEDICARE, BC, SELFPAY ==
[2023-07-18 17:14] LABS: Abs Immature Grans 0.01 10^3/uL (0.0-0.06); Absolute Basophil Count 0.04 10^3/uL (0.0-0.2); Absolute Eosinophil Count 0.09 10^3/uL (0.0-0.7); Absolute Lymphocyte Count 0.89 10^3/uL (1.2-3.4); Absolute Monocyte Count 0.41 10^3/uL (0.1-0.8); Absolute Neutrophil Count 2.07 10^3/uL (1.2-6.7); Basophils % 1.1; Eosinophils % 2.6; HCT 38.7 % (36.0-46.0); HGB 12.9 g/dL (11.2-15.7); Immature Grans % 0.3; Lymphocytes % 25.4; MCH 31.1 pg (27.0-33.0); MCHC 33.3 % (32.0-36.0); MCV 93 fL (80-95); MPV 10.4 fL (8.0-11.0); Monocytes % 11.7; Neutrophils % 58.9; Platelet Count 254 10^3/uL (130-400); RBC 4.15 10^6/uL (3.93-5.22); RDW 13.2 % (11.7-14.6); WBC 3.51 10^3/uL (4.4-10.8)
[2023-07-18 18:08] LABS: ALT 24 U/L (14-59); AST 20 U/L (15-37); Albumin 4.1 g/dL (3.4-5.0); Alkaline Phosphatase 41 U/L (46-116); Anion Gap 8.5 mmol/L (3-11); BUN 11 mg/dL (7-18); Bilirubin, Total 0.6 mg/dL (0.2-1.0); CO2 27.5 mmol/L (21.0-32.0); CREATININE 0.8 mg/dL (0.55-1.02); Calcium 9.5 mg/dL (8.5-10.1); Chloride 102 mmol/L (98-107); Estimated GFR 81.21 (mL/min/1.73m2); Glucose 106 mg/dL (74-106); Potassium 5.2 mmol/L (3.5-5.1); Sodium 138 mmol/L (136-145); TSH (W/Ref FT4) 1.29 uIU/mL (0.36-3.74); Total Protein 7.1 g/dL (6.4-8.2)
== END 2023-07-18 09:27 | disposition home or self-care (01) ==
LOC: NCHCN 09:26
PROVIDERS: PCP Nurse Practitioner Family; Visit Provider Nurse Practitioner Family
DX: E87.5 Hyperkalemia (principal); D72.819 Decreased white blood cell count, unspecified; F32.89 Other specified depressive episodes
CPT/HCPCS: 80053; 84443; 85025

== ENCOUNTER 2023-10-23 15:23 | Outpatient (REF) | payer MEDICARE, BC, SELFPAY ==
[2023-10-23 15:32] LABS: Abs Immature Grans 0.02 10^3/uL (0.0-0.06); Absolute Basophil Count 0.05 10^3/uL (0.0-0.2); Absolute Eosinophil Count 0.08 10^3/uL (0.0-0.7); Absolute Monocyte Count 0.39 10^3/uL (0.1-0.8); Basophils % 1.4; Eosinophils % 2.3; HCT 37.9 % (36.0-46.0); HGB 12.5 g/dL (11.2-15.7); Immature Grans % 0.6; Lymphocytes % 25.4; MCH 30.8 pg (27.0-33.0); MCV 93 fL (80-95); MPV 10.6 fL (8.0-11.0); Neutrophils % 59.3; Platelet Count 247 10^3/uL (130-400); RBC 4.06 10^6/uL (3.93-5.22); RDW 13.2 % (11.7-14.6); RDW-SD 45.4 fL; WBC 3.54 10^3/uL (4.4-10.8)
[2023-10-23 16:02] LABS: ALT 30 U/L (14-59); AST 22 U/L (15-37); Albumin 4.1 g/dL (3.4-5.0); Alkaline Phosphatase 46 U/L (46-116); Anion Gap 6.7 mmol/L (3-11); BUN 13 mg/dL (7-18); Bilirubin, Total 0.5 mg/dL (0.2-1.0); CO2 28.3 mmol/L (21.0-32.0); CREATININE 0.8 mg/dL (0.55-1.02); Calcium 9.3 mg/dL (8.5-10.1); Chloride 102 mmol/L (98-107); Estimated GFR 81.21 (mL/min/1.73m2); Glucose 100 mg/dL (74-106); Potassium 5.3 mmol/L (3.5-5.1); Sodium 137 mmol/L (136-145); Total Protein 7.2 g/dL (6.4-8.2)
== END 2023-10-23 15:24 | disposition home or self-care (01) ==
LOC: NCHCN 15:23
PROVIDERS: PCP Nurse Practitioner Family; Visit Provider Nurse Practitioner Family
DX: E87.5 Hyperkalemia (principal)
CPT/HCPCS: 80053; 85025

== ENCOUNTER 2023-11-09 16:03 | Outpatient (REF) | payer MEDICARE, BC, SELFPAY ==
[2023-11-09 20:41] LABS: Source Nasopharynx
[2023-11-09 21:26] LABS: COVID-19 PCR Negative (Negative)
== END 2023-11-09 16:04 | disposition home or self-care (01) ==
LOC: LBN 16:03
PROVIDERS: PCP Nurse Practitioner Family; Visit Provider Physician Assistant Medical
DX: J01.90 Acute sinusitis, unspecified (principal); Z20.822 Contact with and (suspected) exposure to COVID-19
CPT/HCPCS: 87635

== ENCOUNTER 2023-12-31 09:08 | Outpatient (REF) | payer MEDICARE, BC, SELFPAY ==
[2023-12-31 14:37] LABS: Abs Immature Grans 0.01 10^3/uL (0.0-0.06); Absolute Basophil Count 0.06 10^3/uL (0.0-0.2); Absolute Eosinophil Count 0.07 10^3/uL (0.0-0.7); Absolute Lymphocyte Count 0.94 10^3/uL (1.2-3.4); Absolute Monocyte Count 0.38 10^3/uL (0.1-0.8); Absolute Neutrophil Count 2.27 10^3/uL (1.2-6.7); Basophils % 1.6; Eosinophils % 1.9; HGB 12.9 g/dL (11.2-15.7); Immature Grans % 0.3; Lymphocytes % 25.2; MCH 30.6 pg (27.0-33.0); MCHC 33.1 % (32.0-36.0); MCV 92 fL (80-95); MPV 10.4 fL (8.0-11.0); Monocytes % 10.2; Neutrophils % 60.8; Platelet Count 235 10^3/uL (130-400); RBC 4.22 10^6/uL (3.93-5.22); RDW 13.3 % (11.7-14.6); RDW-SD 45.5 fL; WBC 3.73 10^3/uL (4.4-10.8)
[2023-12-31 15:10] LABS: Anion Gap 6.3 mmol/L (3-11); BUN 14 mg/dL (7-18); CO2 28.7 mmol/L (21.0-32.0); CREATININE 0.7 mg/dL (0.55-1.02); Calcium 9.4 mg/dL (8.5-10.1); Chloride 103 mmol/L (98-107); Estimated GFR 95.32 (mL/min/1.73m2); Glucose 100 mg/dL (74-106); Potassium 5.1 mmol/L (3.5-5.1); Sodium 138 mmol/L (136-145)
== END 2023-12-31 09:09 | disposition home or self-care (01) ==
LOC: NCHCN 09:08
PROVIDERS: PCP Nurse Practitioner Family; Visit Provider Nurse Practitioner Family
DX: D72.819 Decreased white blood cell count, unspecified (principal); E87.5 Hyperkalemia
CPT/HCPCS: 80048; 85025

== ENCOUNTER 2024-02-25 13:06 | Outpatient (REF) | payer MEDICARE, BC, SELFPAY ==
[2024-02-25 21:33] LABS: Abs Immature Grans 0.03 10^3/uL (0.0-0.06); Absolute Basophil Count 0.03 10^3/uL (0.0-0.2); Absolute Eosinophil Count 0.01 10^3/uL (0.0-0.7); Absolute Lymphocyte Count 0.99 10^3/uL (1.2-3.4); Absolute Monocyte Count 0.52 10^3/uL (0.1-0.8); Absolute Neutrophil Count 4.18 10^3/uL (1.2-6.7); Basophils % 0.5; Eosinophils % 0.2; HCT 34.9 % (36.0-46.0); HGB 12.1 g/dL (11.2-15.7); Immature Grans % 0.5; Lymphocytes % 17.2; MCH 31.4 pg (27.0-33.0); MCHC 34.7 % (32.0-36.0); MCV 91 fL (80-95); MPV 10.7 fL (8.0-11.0); Neutrophils % 72.6; Platelet Count 211 10^3/uL (130-400); RBC 3.85 10^6/uL (3.93-5.22); RDW 13.1 % (11.7-14.6); RDW-SD 43.5 fL; WBC 5.76 10^3/uL (4.4-10.8)
[2024-02-25 21:50] LABS: ALT 28 U/L (14-59); AST 18 U/L (15-37); Albumin 3.8 g/dL (3.4-5.0); Alkaline Phosphatase 44 U/L (46-116); Anion Gap 11.9 mmol/L (3-11); BUN 9 mg/dL (7-18); Bilirubin, Total 0.3 mg/dL (0.2-1.0); CO2 24.1 mmol/L (21.0-32.0); CREATININE 0.7 mg/dL (0.55-1.02); Calcium 9.1 mg/dL (8.5-10.1); Chloride 97 mmol/L (98-107); Estimated GFR 95.32 (mL/min/1.73m2); Glucose 107 mg/dL (74-106); Potassium 4.2 mmol/L (3.5-5.1); Sodium 133 mmol/L (136-145); Total Protein 6.9 g/dL (6.4-8.2)
== END 2024-02-25 13:07 | disposition home or self-care (01) ==
LOC: NCHCN 13:06
PROVIDERS: PCP Nurse Practitioner Family; Visit Provider Nurse Practitioner Family
DX: J01.90 Acute sinusitis, unspecified (principal)
CPT/HCPCS: 80053; 85025

== ENCOUNTER → 2024-03-05 03:01 | Outpatient (CLI) | payer MEDICARE, BC, SELFPAY ==
--- NOTE | 2024-03-05 | DI.MAMMO_ITS ---
Exam(s) MAMMO SCREENING EXAM: MAMMO SCREENING CLINICAL HISTORY: SCREENING, Z12.31 TECHNIQUE: Mammograms were interpreted according to the usual protocol including computer analysis w [email or web address] CAD system, tomosynthesis and C-view imaging. COMPARISON: 2014 through 2022 FINDINGS: The breasts are composed of scattered fibroglandular densities, Breast Density category B. No suspicious masses or suspicious microcalcifications are seen. No skin thickening or abnormal axillary lymph nodes are seen. There has been no significant change from prior exams. IMPRESSION: BI-RADS Category 1, Negative mammogram Yearly screening mammography is recommended. Breast Density - Category B, scattered fibroglandular densities. A negative radiographic report should not delay biopsy if a dominant or clinically suspicious mass is present. Up to ten percent of cancers are not identified on mammography. A negative report may reinforce clinical impression. Adenosis and dense breasts may obscure an underlying neoplasm. False positive reports average 6 to 10%. Patient will receive a letter notifying them of these results.
== END ==
PROVIDERS: PCP Nurse Practitioner Family; Visit Provider Nurse Practitioner Family
DX: Z12.31 Encounter for screening mammogram for malignant neoplasm of breast (principal)
CPT/HCPCS: 77063; 77067

== ENCOUNTER 2024-11-10 15:03 | Outpatient (CLI) | payer MEDICARE, BC, SELFPAY ==
--- OUTSIDE RECORDS SUMMARY | 2024-11-10 15:07 | XMS_ITS | Encounter Summary ---
Author Organization [facility] Address [address] [place] [address] Care Team Providers Care Qa Consultant Name Role Phone Emelia Morales MD Primary Care Provider Unavailabl e Encounter Details Date Type Department Care Team (Late st Contact Info) Description 08/12/2018 Results Only [facility] [phone] Hui Rincon, ATTRACTIONS ASSOCIATE [address] [facility] [address] [place] [id number] Social History Tobacco Use Types Packs/Day Years Used Date Smoking Tobacco: Never Assessed Comments Unknown Sex and Gender Information Value Date Recorded Sex Assigned at Not on file Legal Sex Female 17:40 EST Gender Identity Not on file Sexual Orientation Not on file documented as of this encounter Plan of Treatment Not on file documented as of this encounter Procedures Procedure Name Priority Date/Time Associated Diagnosis Comments SURGICAL PATHOLOGY Routine 08/12/2018 16 :21 EDT documented in this encounter Results * SURGICAL PATHOLOGY (08/12/2018 16:21 EDT) Pathology Report: SURGICAL PATHOLOGY REPORT Reports generated via electronic interface contain original data; however they are lacking the format of the original report. Caution should be taken when reading/interpret ing unformatted reports. Name: ? FRANCISCA POOLE ? Accession #: ? [id number] ? : ? 1955 (Age: 63) ??F ? Collect Date: ? 08/12/2018 ? Location: ? [facility] ? Receive Date: ? 08/13/2018 ? Provider: HUI RINCON ATTRACTIONS ASSOCIATE Copy to: ? Final Pathologic Diagnosis: A. ??SKIN OF STERNUM, LEFT, PUNCH BIOPSY:- Superficial perivascular dermatitis with focal granuloma formation. ??See comment. B. ??SKIN OF CLAVICULAR REGION, MID, PUNCH BIOPSY: - Sparse superficial perivascular dermatitis. Comment: Numerous sections of both biopsies were reviewed. ??The biopsy from left sternum (A) has a patchy, moderately dense superficial dermal infiltrate that notably includes formation of rare noncaseating granulomas. ??The epidermis is relatively unremarkable. ??Although an infectious etiology cannot be entirely excluded, no fungal organisms are identified. ??No foreign material is appreciated. ??The granuloma is like that seen in sarcoidosis although the accompanying lymphocytic infiltrate would be somewhat unusual. ??A hypersensitivity reaction, including drug-related eruption is a consideration, particularly given the rarity of the granulomas. ??The biopsy from mid clavicular (B) shows relatively non-specific and subtle features including a very sparse superficial dermal inflammatory infiltrate. ??No granuloma formation is evident. ??Correlation with the clinical history and examination is essential. (Dr. Herrera)/[facility] Microscopic Description: (A) Sections consist of a punch biopsy of skin to the deep reticular dermis. The stratum corneum is composed of a relatively normal layer of basketweave orthokeratin. ??The epidermis varies to a mild degree in thickness but has a generally diminished rete ridge pattern. ??There is slight vacuolization along the basal zone. ??Within the dermis, there is a patch superficial perivascular and interstitial infiltrate. ??The infiltrate is composed primarily of lymphomononuclear cells. ??On rare sections, there is formation of a granuloma associated with lymphocytes. ??The granuloma is not accompanied by necrosis, caseation, or suppuration. ??No foreign material is evident (polarizable or non-polarizable). ??Deeper sections show similar features. ??No fungal organisms are identified on sections prepared with PAS-amylase stain. (B) Sections consist of a punch biopsy of skin to the deep reticular dermis. The epidermis is mildly atrophic with slight vacuolization. ??There is sparse inflammation in the superficial dermis that consists primarily of small lymphocytes. ??Multiple deeper sections show similar features. ??No fungal organisms are identified on sections prepared with PAS-amylase stain. ??(Dr. Herrera)/[facility] Document reviewed and electronically signed by: LAXMI HERRERA MD Report ??Date: 08/15/2018 16:54 By the signature above, the attending physician certifies that he/she has personally conducted a gross and/or microscopic examination of the described specimens and rendered or confirmed the above diagnosis. Specimen(s) Received: 3.0 mm punch biopsy to chest x2 sites A. ??Biopsy left sternum (#1) B. ??Biopsy mid clavicular (#2) Clinical History: Rash to axilla bilaterally & chest x5 mos., unresponsive to topical steroids Gross Description: A. ?Received in formalin labelled with proper patient identification (initials O, J) and left sternum biopsy is a punch biopsy of wells-pink skin (0.3 cm in diameter x 0.2 cm in thickness). The specimen is submitted entirely in A1. B. ?Received in formalin labelled with proper patient identification (initials O, J) and biopsy of mid clavicular is a punch biopsy of wells-pink skin (0.3 cm diameter x 0.2 cm in thickness). The specimen is submitted entirely in B1. EMMY Pereira (ASCP) 08/13/2018 4:27 PM End of Report [facility] 08/12/2018 16:2 1 EDT 08/13/2018 16:21 EDT us Hui Rincon ATTRACTIONS ASSOCIATE PATHOLOGY ORDERABLES Shirley hoyos Result [facility] [address] [place] [address] documented in this encounter Visit Diagnoses Not on filedocumented in this encounter Care Teams Qa Consultant Relationship Specialty Start Date End Date Emelia Morales MD PCP - General 12/24/14 01/18/20 documented as of this encounter
--- OUTSIDE RECORDS SUMMARY | 2024-11-10 15:07 | XMS_ITS | Encounter Summary ---
Author Organization [facility] Address [place] [address] Care Team Providers Care Client Success Director Name Role Phone Unavailable Primary Care Provider Unavailabl e Encounter Details Date Type Department Care Team (Late st Contact Info) Description 09/19/2010 9:10 AM EDT Office Visit Sleep Medicine [place] [phone] Leda Kaur MD [facility] [place] [address] Social History Tobacco Use Types Packs/Day Years Used Date Smoking Tobacco: Never Assessed Sex and Gender Information Value Date Recorded Sex Assigned at Not on file Gender Identity Not on file Sexual Orientation Not on file documented as of this encounter Plan of Treatment Not on file documented as of this encounter Visit Diagnoses Not on filedocumented in this encounter
--- OUTSIDE RECORDS SUMMARY | 2024-11-10 15:07 | XMS_ITS | Clinical Summary ---
Author Organization [facility] Address [facility] [place] [address] Care Team Providers Care Avionics Repair Technician Name Role Phone Emelia Morales MD Primary Care Provider [phone] Allergies Active Allergy Reactions Criticality Noted Date Comments Sulfa (Sulfonamide Antibiotics) CIS - Rash Medications Medication Sig Dispensed Refills Start Date End Date Status escitalopram (LEXAPRO) 20 mg tablet 05/07/2008 Active traZODone (DESYREL) 50 mg tablet 05/07/2008 Active fluticasone (FLONASE) 50 mcg/Actuation nasal spray 2 sprays by Each Nare route daily. Active multivitamin (THERAGRAN) tablet Take 1 tablet by mouth daily. Active cholecalciferol, Vitamin D3, 400 unit tablet Take 400 Units by mouth daily. Active ibuprofen (ADVIL) 200 mg tablet Take 200 mg by mouth as needed. 02/20/2011 Active aspirin-acetaminophen- caffeine (EXCEDRIN MIGRAINE) 250-250-65 mg per tablet Take 1 tablet by mouth as needed. 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 Overview (02/20/2011): Suspected based on symptoms Immunizations Name Administration Dates Next Due Influenza (Novel [id number]) Injectable 11/09/2009 Influenza Trivalent w/Preservative 10/10/2011 Social History Tobacco Use Types Packs/Day Years Used Date Smoking Tobacco: Never Assessed Sex and Gender Information Value Date Recorded Sex Assigned at Not on file Gender Identity Not on file Sexual Orientation Not on file Plan of Treatment Health Maintenance Due Date Last Done Comments CT Colonography 1955 Colonoscopy 1955 Colorectal Cancer Screening 1955 FIT DNA 1955 FIT 1955 Sigmoidoscopy (10 year) with FIT yearly 1955 Sigmoidoscopy 1955 Hepatitis C Screening 1975 Tetanus/Diphtheria/Pertussis Vaccines (1 - Tdap) 1976 Breast Cancer Share Decision Needed 1997 Breast Cancer screening 1997 Pneumoccocal Vaccine: 65+ (1 of 1 - PCV) 2007 Zoster vaccine (1 of 2) 2007 Advance Directive 2012 Bone Density Scan 2022 Covid-19 Vaccine (1 - season) 2024 Influenza (Flu) vaccine (1 o f 1 - Influenza standard series) 07/20/2024 10/10/2011, 11/09/2009 Care Teams Avionics Repair Technician Relationship Specialty Start Date End Date Emelia Morales MD [address] [place] [address] PCP - General 10/11/10
--- OUTSIDE RECORDS SUMMARY | 2024-11-10 15:07 | XMS_ITS | Encounter Summary ---
Author Organization [facility] Address [address] [place] [address] Care Team Providers Care Wrist Closer Name Role Phone Unavailable Primary Care Provider Unavailabl e Encounter Details Date Type Department Care Team (Late st Contact Info) Description 03/07/2012 Results Only [facility] [address] [place], [place] [address] Clarisa Henry FNP [address] [place], [place] [id number] Social History Tobacco Use Types Packs/Day Years [...] Procedure Name Priority Date/Time Associated Diagnosis Comments PAP TEST- RESULT ONLY Routine 03/07/2012 0:00 EDT documented in this encounter Results * PAP TEST- RESULT ONLY (03/07/2012 0:00 EDT) Pathology Report: CYTOPATHOLOGY REPORT Reports generated via electronic interface contain original data; however they are lacking the format of the original report. Caution should be taken when reading/interpreti ng unformatted reports. Name: ? FRANCISCA POOLE ? Accession #: ? [id number] : ? 1955 (Age: 56) ??F ?Collect Date: ? 03/07/2012 Location: ? [facility] ? Receive Date: ? 03/08/2012 Provider: ?CLARISA HENRY AUTOMATIC DIE CUTTING MACHINE OPERATOR Copy to: ? Specimen/Source: ?Pap Test, Cervix/Endocervix, ThinPrep Imaging System with manual evaluation Last Menstrual Period: ? Many years ago ? SPECIMEN ADEQUACY ? Satisfactory for Evaluation - transformation zone component present GENERAL CATEGORIZATION ? Negative for Intraepithelial Lesion or Malignancy ? Document reviewed and electronically signed by: ? Meme Hobson, SCT(ASCP) ? Report Date: ??03/14/2012 10:02 End of Report SKYLER RODRIGUEZ 03/07/2012 03/08/2012 us Clarisa Henry AUTOMATIC DIE CUTTING MACHINE OPERATOR PATHOLOGY ORDERABLES Final Resul t SKYLER RODRIGUEZ [address] [place] [address] documented in this encounter Visit Diagnoses Not on filedocumented in this encounter
--- OUTSIDE RECORDS SUMMARY | 2024-11-10 15:07 | XMS_ITS | Encounter Summary ---
Author Organization [facility] Address [facility] [place] [address] Care Team Providers Care Cycle Touring Guide Name Role Phone Emelia Morales MD Primary Care Provider [phone] Encounter Details Date Type Department Care Team (Late st Contact Info) Description 10/26/2010 8:05 PM EST Procedure [place] [address] Marco Antonio Whitley MD [facility] [place] [address] Social History Tobacco Use Types Packs/Day Years Used Date Smoking Tobacco: Never Assessed Sex and Gender Information Value Date Recorded Sex Assigned at Not on file Gender Identity Not on file Sexual Orientation Not on file documented as of this encounter Plan of Treatment Not on file documented as of this encounter Visit Diagnoses Not on filedocumented in this encounter Care Teams Cycle Touring Guide Relationship Specialty Start Date End Date Emelia Morales MD [address] [place] [address] PCP - General 10/11/10 documented as of this encounter
--- OUTSIDE RECORDS SUMMARY | 2024-11-10 15:07 | XMS_ITS | Encounter Summary ---
Author Organization [facility] Address [address] [place] [address] Care Team Providers Care Event Manager Name Role Phone Viki Roberts APRN Primary Care Provider [phone] Encounter Details Date Type Department Care Team (Latest Contact Info) Description 01/26/2023 Lab Requisition [facility] Pathology & Laboratory Medicine - [facility] [address] [place] [address] Viki Roberts, BRENDON [address] [facility] [address] [place] [id number] Encounter for general adult medical examination without abnormal findings; Encounter for gynecological examination (general) (routine) without abnormal findings; Encounter for screening for malignant neoplasm of cervix Social History Tobacco Use Types Packs/Day Years Used Date Smoking Tobacco: Never Smokeless Tobacco: Never Alcohol Use Standard Drinks/Week Comments Yes 0 (1 standard drink = 0.6 oz pur e alcohol) rare Interpersonal Safety Answer Date Record ed Physically Hurt Never 06/20/2020 Verbally Threaten Not on file 06/20/2020 Comments Unknown Sex and Gender Information Value Date Recorded Sex Assigned at Not on file Legal Sex Female 17:40 EST Gender Identity Not on file Sexual Orientation Not on file documented as of this encounter Plan of Treatment Not on file documented as of this encounter Procedures Procedure Name Priority Date/Time Associated Diagnosis Comments PAP TEST Today 01/25/2023 8:50 EST Encounter for general adult medical examination without abnormal findings Encounter for gynecological examination (general) (routine) without abnormal findings Encounter for screening for malignant neoplasm of cervix HPV DNA DETECTION WITH GENOTYPING, PCR Today 01/25/2023 8:50 EST Encounter for general adult medical examination without abnormal findings Encounter for gynecological examination (general) (routine) without abnormal findings Encounter for screening for malignant neoplasm of cervix documented in this encounter Results * HUMAN PAPILLOMAVIRUS (HPV) DETECTION-HIGH RISK TYPES (01/25/2023 8:50 EST) HPV other High Risk types, PCR Negative Negative 02/08/2023 16:38 EDT [facility] Comment:No E6 or E7 mRNA is detected from HPV types 16,18,31,33,35,39,45,51,52,56,58,59,66, and 68 by finish sander mediated amplification. Papanicolaou smear specimen (specimen) CERVIX UTERI STRUCTURE / Unknown 01/25/2023 8:50 EST 02/07/2023 14:48 EDT Viki Roberts CONTACT CENTRE SUPERVISOR MICROBIOLOGY - GENERAL OR DERABLES Final Result [facility] [address] [place] [address] * PAP TEST (01/25/2023 8:50 EST) Specimens A. Cervix and/or Endocervix , ThinPrep Imaging System with Manual Evaluation 02/08/2023 16:38 T [facility] Specimen Adequacy Satisfactory for Evaluation - assessment of transformation zone component not applicable ( e.g. atrophy, vaginal sample, hysterectomy) 02/08/2023 16:38 EDT [facility] General Categorization Negative for intraepithelial lesion or malignancy 02/08/2023 16:38 T [facility] Attestation . 02/08/2023 16:38 [facility] at 1638 Clinical History See below 02/09/20 16:38 EDT [facility] HPV The result for the Human Papillomavirus (HPV) Detection-High Risk Types is Negative. No E6 or E7 mRNA is detected from HPV types 16,18,31,33,35,39 ,45,51,52,56,58,5 9,66, and 68 by finish sander mediated amplification.May ting was performed on specimen [id number] and was resulted on 02/08/2023 1638 EDT by SERJIO, LAB INSTRUMENT RESULTS IN 02/08/2023 16:38 EDT [facility] Performing Lab [facility] 02/08/2023 16:38 EDT [facility] Scanned Images 02/08/2023 16:38 EDT [facility] Papanicolaou smear specimen (specimen) CERVIX UTERI STRUCTURE / Unknown 01/25/2023 8:50 EST 01/26/2023 12:42 EST us Viki Roberts CONTACT CENTRE SUPERVISOR PATHOLOGY ORDERABLES Shirley romain Result [facility] [address] [place] [address] documented in this encounter Visit Diagnoses Diagnosis Encounter for general adult medical examination without abnormal findings Unspecified general medical examination Encounter for gynecological examination (general) (routine) without abnormal findings Encounter for screening for malignant neoplasm of cervix Screening for malignant neoplasm of the cervix documented in this encounter Care Teams Event Manager Relationship Specialty Start Date End Date Viki Roberts APRN [address] [facility] [address] [place] [address] PCP - General 01/19/20 documented as of this encounter
--- OUTSIDE RECORDS SUMMARY | 2024-11-10 15:07 | XMS_ITS | Encounter Summary ---
Author Organization [facility] Address [address] [place] [address] Care Team Providers Care Dining Room Attendant Cafeteria Name Role Phone Unavailable Primary Care Provider Unavailabl e Encounter Details Date Type Department Care Team (Late st Contact Info) Description 12/14/2005 Results Only [facility] [address] [place] [address] Myla Lange MD [address] [place] [address] [place] [address] Social History Tobacco Use Types Packs/Day Years [...] Date/Time Associated Diagnosis Comments SURGICAL PATHOLOGY Routine 12/14/2005 0:00 EST documented in this encounter Results * SURGICAL PATHOLOGY (12/14/2005 0:00 EST) Pathology Report: SURGICAL PATHOLOGY REPORT Reports generated via electronic interface contain original data; however they are lacking the format of the original report. Caution should be taken when reading/interpreti ng unformatted reports. Name: ? FRANCISCA POOLE ? Accession #: ? [id number] ? : ? 1955 (Age: 50) ??F ? Collect Date: ? 12/14/2005 ? Location: ? [facility] ? Receive Date: ? 12/15/2005 ? Provider: MYLA LANGE MD Copy to: KANCHAN PEGUERO MD ? Final Pathologic Diagnosis: ? Endometrium, biopsy: 1. ?Secretory endometrium (day 18-19). 2. ?No hyperplasia identified. Document reviewed and electronically signed by: MARIELOS TALLEY MD Report ??Date: 12/18/2005 17:33 By the signature above, the attending physician certifies that he/she has personally conducted a gross and/or microscopic examination of the described specimens and rendered or confirmed the above diagnosis. Specimen(s) Received: ? Endo bx Clinical History: ? Endo bx, abnl bleeding; LMP: 11/30/05 Gross Description: ? Received in formalin labeled Zulema and endometrium is a 2.3 x 1.9 x 0.4 cm aggregate of wells-pink ??tissue. ??Submitted in toto in one cassette. ??(Jose Benitez)/[facility] End of Report SKYLER RODRIGUEZ 12/14/2005 12/15/2005 8:3 5 EST us Myla Lange MD PATHOLOGY ORDERABLES Final Resu lt SKYLER RODRIGUEZ [address] [place] [address] documented in this encounter Visit Diagnoses Not on filedocumented in this encounter
--- OUTSIDE RECORDS SUMMARY | 2024-11-10 15:07 | XMS_ITS | Clinical Summary ---
Author Organization [facility] Address [address] [place] [address] Care Team Providers Care Transit Vehicle Inspector Name Role Phone ArmandoFriedaViki Nae OLIVAS Primary Care Provider [phone] Allergies Active Allergy Reactions Criticality Noted Date Comments Sulfa (Sulfonamide Antibiotics) 07/2020 CIS - Rash Medications ibuprofen (MOTRIN) 200 mg tablet Take 200 mg by mouth as needed. 1 Active escitalopram oxalate (LEXAPRO) 20 mg tablet TK 1 T PO D 0 Active fluticasone propionate (FLONASE) 50 mcg/actuation nasal spray 2 Sprays by nasal route daily. Active traZODone (DESYREL) 50 mg tablet TK 2 TS PO HS 0 Active magnesium chloride (SLOW-MAG) 71.5 mg Take by mouth daily. Active Omeprazole 20 mg tablet,delayed release (DR/EC) Take 20 mg by mouth daily. Active inulin (FIBER GUMMIES ORAL) Take by mouth. 2 gummies daily Active azelaic acid/ceramide 1,3,6-11 (FINACEA PLUS TOPICAL) Apply topically as needed. Active oxygen-air delivery systems (HORIZON NASAL CPAP SYSTEM MISC) by misc (non-drug; combo route) route at bedtime. Active Active Problems Problem Noted Date Diagnosed Date Sarcoidosis 01/26/2020 Overview (01/26/2020): Skin biopsy at [place] 2018 Seen 4 season [id number] In 1990s episode of e nodosum and cxr negative. (Lyme HX -treated for several years) RACHEL (obstructive sleep apnea) 01/26/2020 Diverticulitis 01/26/2020 Medical History Medical History Date Comments Sarcoidosis 01/26/2020 Skin biopsy at [facility] 2018 Seen 4 season [id number] In 1990s episode of e nodosum and cxr negative. RACHEL (obstructive sleep apnea) 01/26/2020 Diverticulitis 01/26/2020 Arthritis Family History Medical History Relation Comments Anxiety Disorder Daughter COPD Father Lung Cancer Father Diabetes Maternal Grandfather Aortic stenosis Mother Heart Failure Mother Lung Cancer Mother RACHEL Son Relation Status Comments Daughter Father Maternal Grandfather Mother Son Social History Tobacco Use Types Packs/Day Years [...] on file Sexual Orientation Not on file Obstetrics History Last Filed Vital Signs Vital Sign Reading Time Taken Comments Blood Pressure 120/74 01/26/2020 0958 EDT Pulse 55 01/26/2020 0958 EDT Temperature - - Respiratory Rate - - Oxygen Saturation - - Inhaled Oxygen Concentration - - Weight 80.8 kg (178 lb 3.2 oz) 01/26/2020 0958 E DT Height 164.4 cm (5' 4.72) 01/26/2020 0958 EDT Body Mass Index 29.91 01/26/2020 0958 EDT Plan of Treatment Health Maintenance Due Date Last Done Comments Hepatitis C Screen 1955 Fall Risk Screening 2022 COVID-19 Vaccine (2023- season) 2024 RSV Immunization ( o r 60+ Years) (1 - 1-dose 75+ series) 2032 Insurance * Guarantor: Tonie Poole Account Type Relation to Patient Date of Phone Billing Address Personal/Family Self 1955 [phone] x4 (Work) [address] [place] [address] [facility] * Guarantor: Tonie Poole Account Type Relation to Patient Date of Phone Billing Address Personal/Family Self 1955 [phone] x4 (Work) [address] [place] [address] * Guarantor: Tonie Poole Account Type Relation to Patient Date of Phone Billing Address Personal/Family Self 1955 [phone] x4 (Work) [address] [place] [address] * Guarantor: Tonie Poole Account Type Relation to Patient Date of Phone Billing Address Personal/Family Self 1955 [phone] x4 (Work) [address] [place] [address] * Guarantor: Tonie Poole Account Type Relation to Patient Date of Phone Billing Address Personal/Family Self 1955 [phone] x4 (Work) [address] [place] [address] * Guarantor: Tonie Poole Account Type Relation to Patient Date of Phone Billing Address Personal/Family Self 1955 [phone] x4 (Work) [address] [place] [address] * Guarantor: Tonie Poole Account Type Relation to Patient Date of Phone Billing Address Personal/Family Self 1955 [phone] x4 (Work) [address] [place] [address] * Guarantor: Tonie Poole Account Type Relation to Patient Date of Phone Billing Address Personal/Family Self 1955 [phone] x4 (Work) [address] [place] [address] Care Teams Transit Vehicle Inspector Relationship Specialty Start Date End Date Viki Roberts APRN [address] [place] [address] PCP - General 01/19/20
--- OUTSIDE RECORDS SUMMARY | 2024-11-10 15:07 | XMS_ITS | Encounter Summary ---
Author Organization [facility] Address [address] [place] [address] Care Team Providers Care Bite Block Maker Name Role Phone Unavailable Primary Care Provider Unavailabl e Encounter Details Date Type Department Care Team (Late st Contact Info) Description 04/27/2008 Results Only [facility] Medicine - [address] [address] Emelia Morales MD Social History Tobacco Use Types Packs/Day Years [...] Date/Time Associated Diagnosis Comments SURGICAL PATHOLOGY Routine 04/27/2008 0:00 EDT documented in this encounter Results * SURGICAL PATHOLOGY (04/27/2008 0:00 EDT) Pathology Report: SURGICAL PATHOLOGY REPORT Reports generated via electronic interface contain original data; however they are lacking the format of the original report. Caution should be taken when reading/interpreti ng unformatted reports. Name: ? FRANCISCA POOLE ? Accession #: ? [id number] ? : ? 1955 (Age: 52) ??F ? Collect Date: ? 04/27/2008 ? Location: ? [facility] ? Receive Date: ? 04/28/2008 ? Provider: EMELIA MORALES MD Copy to: ? Final Pathologic Diagnosis: ? Skin of thigh, left, excision: 1. ?Residual melanocytic nevus, compound type, with unusual architectural features and cytologic atypia. ??See comment. ? - Margins of excision negative for melanocytic nevus. ? 2. ?? Epidermal reparative change and dermal scar. Comment: ? The previous biopsy ([id number]) has been reviewed in conjunction with the current specimen. ??(Dr. Guerrero)/[facility] Document reviewed and electronically signed by: Ching Guerrero MD Report ??Date: 04/30/2008 16:29 By the signature above, the attending physician certifies that he/she has personally conducted a gross and/or microscopic examination of the described specimens and rendered or confirmed the above diagnosis. Specimen(s) Received: ? L thigh Clinical History: ? Atypical nevi Gross Description: ? Received in formalin labelled Zulema and nevi L thigh is an unoriented elliptical excision of skin that measures 0.7 x 0.5 cm, excised to a depth of 0.3 cm. ??There is a central wells-brown papule measuring 0.3 x 0.2 x 0.1 cm. ??The excision margin is inked black. ??The specimen is serially sectioned and is entirely submitted as follows: BLOCK MENDOZA A1 ?Central sections A2 ?Tips reverse en face (Dr. Weinberg)/[facility] End of Report [facility] 04/27/2008 04/28/2008 17: 20 EDT us Emelia Morales MD PATHOLOGY ORDERABLES Final Resul t [facility] [address] [place] [address] documented in this encounter Visit Diagnoses Not on filedocumented in this encounter
--- OUTSIDE RECORDS SUMMARY | 2024-11-10 15:07 | XMS_ITS | Encounter Summary ---
Author Organization [facility] Address [address] [place] [address] Care Team Providers Care Equip Tech Name Role Phone Unavailable Primary Care Provider Unavailabl e Encounter Details Date Type Department Care Team (Late st Contact Info) Description 03/20/2008 Results Only [facility] Medicine - [address] [address] Emelia Morales MD Social History Tobacco Use [...] Procedure Name Priority Date/Time Associated Diagnosis Comments CYTOPATHOLOGY Routine 03/20/2008 0:00 EDT documented in this encounter Results * CYTOPATHOLOGY (03/20/2008 0:00 EDT) Pathology Report: CYTOPATHOLOGY REPORT Reports generated via electronic interface contain original data; however they are lacking the format of the original report. Caution should be taken when reading/interpreti ng unformatted reports. Name: ? FRANCISCA POOLE ? Accession #: ? [id number] : ? 1955 (Age: 52) ??F ?Collect Date: ? 03/20/2008 Location: ? [facility] ? Receive Date: ? 03/24/2008 Provider: ?EMELIA MORALES MD Copy to: ? Specimen/Source: ?ThinPrep Pap Test, Endocervix, processed on [employer] ThinPrep Imaging System, with manual evaluation Last Menstrual Period: ? 12/27 Menstrual/Pregnanc y Status: ? Menopausal Other: ? HPVA - HPV testing requested if ASC-US on the current ThinPrep Pap test. ? SPECIMEN ADEQUACY ? Satisfactory for Evaluation - transformation zone component present - scant squamous epithelial component GENERAL CATEGORIZATION ? Negative for Intraepithelial Lesion or Malignancy ? Document reviewed and electronically signed by: ? Meme Hobson, SCT(ASCP) ? Report Date: ??03/25/2008 13:44 End of Report SKYLER RODRIGUEZ 03/20/2008 03/24/2008 us Emelia Morales MD PATHOLOGY ORDERABLES Final Resul t Performing Organization Address City/State/[facility] Co de Phone Number SKYLER RODRIGUEZ [address] [place] [address] documented in this encounter Visit Diagnoses Not on filedocumented in this encounter
--- OUTSIDE RECORDS SUMMARY | 2024-11-10 15:07 | XMS_ITS | Encounter Summary ---
Author Organization [facility] Address [address] [place] [address] Care Team Providers Care Gospel Worker Name Role Phone Unavailable Primary Care Provider Unavailabl e Encounter Details Date Type Department Care Team (Latest Contact Info) Description 12/22/2014 15:34 EST - 12/22/2014 23:59 EST Hospital Encounter [address] [address] Unknown, Provider, MD Discharge Disposition: Home or Self Care Social History Tobacco Use Types Packs/Day Years Used Date Smoking Tobacco: Never Assessed Comments Unknown Sex and Gender Information Value Date Recorded Sex Assigned at Not on file Legal Sex Female 17:40 EST Gender Identity Not on file Sexual Orientation Not on file documented as of this encounter Medications at Time of Discharge ibuprofen (MOTRIN) 200 mg tablet Take 200 mg by mouth as needed. 02/20/2011 documented as of this encounter Discharge Disposition Disposition Code Departure Means Destination Home or Self [place] documented in this encounter Plan of Treatment Not on file documented as of this encounter Visit Diagnoses Not on filedocumented in this encounter
--- OUTSIDE RECORDS SUMMARY | 2024-11-10 15:07 | XMS_ITS | Encounter Summary ---
Author Organization [facility] Address [facility] [place] [address] Care Team Providers Care Wheel Tuner Name Role Phone Emelia Morales MD Primary Care Provider [phone] Reason for Visit * Reason Comments Obstructive Sleep Apnea Encounter Details Date Type Department Care Team (Late st Contact Info) Description 02/20/2011 2:40 PM EDT Office [place] [address] Leda Kaur MD [facility] SLEEP DISORDERS [place] [id number] Obstructive sleep apnea (adult) (pediatric) (Primary Dx) Social History Tobacco Use Types Packs/Day Years Used Date Smoking Tobacco: Never Assessed Sex and Gender Information Value Date Recorded Sex Assigned at Not on file Gender Identity Not on file Sexual Orientation Not on file documented as of this encounter Progress Notes * Leda Kaur MD - 02/20/2011 3:27 PM EDT Sleep Medicine Follow-Up Note HPI: Tonie Poole is a 55 y.o. female seen for follow-up of obstructive sleep apnea. Ms. Schmidt underwent PSG 10/03/10, demonstrating mild RACHEL. She returned for a CPAP titration on 10/26/10 and was prescribed CPAP at 9cm H2O. Patient states that I can't believe the difference the CPAP has made. Took some getting used - finally moved into a full face mask. Was using nasal mask with chin strap but it was uncomfortable. No problems with mask interface (using a Quattro). Mild irritation at bridge of nose. No excessive leak. No pressure intolerance. Still feels like wakes up to switch position - goes right back to sleep. May not wake up as much. Awakening much more refreshed - gets out ofbed and works out. Energy levels much better during the day; occasional fatigue. Overall quite happy with CPAP. Has stopped using Ambien recently, but has been taking some trazodone. Finds that if doesn't take anything can have more trouble reinitiating sleep. Will be awake thinking about things. ROS: CON: weight change: working on weight loss - may have lost 5# ENT: nasal obstruction: no congestion; does have dry mouth sometimes (maybe 1 day a week) PSYCH: depression/anxiety well controlled PE: GEN: well appearing, no distress COMPLIANCE CARD RESULTS: Date: 11/24/10-02/19/11 Pressure: 9cm H2O Usage:93% Average usage on days used: 7 hrs AHI: 4 Leak: stable and WNL Assessment: Tonie Poole is a 55 y.o. female with a history of frequent awakenings, unrefreshed sleep and mild obstructive sleep apnea. She is tolerating the CPAP quite well and has had marked improvements in daytime level of functioning, as well as some improvements in nocturnal sleep quality. Mr. Schmidt has some discomfort on the bridge of her nose from the mask and we discussed trying mask liners. 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 We discussed that she may also benefit from learning some behavioral techniques to help manage these symptoms. Diagnostic Codes:327.23; Obstructive Sleep Apnea Time spent face to face: 20 min Time spent devoted to counseling and discussion: 15 min Recommendations: 1. Continue CPAP at current pressure 2. Reviewed routine mask change and equipment maintenance 3. Gave patient information regarding mask liners 4. Recommended reading No More Sleepless Nights for conditioned insomnia 5. Follow up PRN Parent voices understanding and acceptance of this advice and will call back if any further questions or concerns. documented in this encounter Plan of Treatment Not on file documented as of this encounter Visit Diagnoses Diagnosis Obstructive sleep apnea (adult) (pediatric)- Primary documented in this encounter Care Teams Wheel Tuner Relationship Specialty Start Date End Date Emelia Morales MD [address] [place] [id number] PCP - General 10/11/10 documented as of this encounter
--- OUTSIDE RECORDS SUMMARY | 2024-11-10 15:07 | XMS_ITS | Encounter Summary ---
Author Organization [facility] Address [address] [place] [address] Care Team Providers Care Boiler Inspector Name Role Phone Viki Roberts APRN Primary Care Provider [phone] Reason for Referral * Cardiology (Routine) - Specialty Report Received Specialty Diagnoses / Procedures Referred By Ronnell no Referred To Contact Radiology Diagnoses Palpitations Procedures EKG 12-LEAD Laurence Weems MD Phone: tel: fax: [facility] Ultrasound [address] [place] [address] Phone: tel: fax: Referral ID Status Reason Start Date Expiration Date V isits Requested Visits Authorized [id number] Specialty Report Received 01/26/2020 1 1 Reason for Visit * Reason Comments New Patient Visit Patient states she i s having no pain today besides a very mild headache. Encounter Details Date Type Department Care Team (Late st Contact Info) Description 01/26/2020 10:[address] [facility] Rheumatology [address] [place] [address] aLurence Weems MD [address] [facility] [address] [place] [address] Sarcoidosis (Primary Dx); Joint pain of lower extremity; Palpitations Social History Tobacco Use Types Packs/Day Years Used Date Smoking Tobacco: Never Smokeless Tobacco: Never Alcohol Use Standard Drinks/Week Comments Yes 0 (1 standard drink = 0.6 oz pur e alcohol) rare Comments Unknown Sex and Gender Information Value Date Recorded Sex Assigned at Not on file Legal Sex Female 17:40 EST Gender Identity Not on file Sexual Orientation Not on file documented as of this encounter Last Filed Vital Signs Vital Sign Reading Time Taken Comments Blood Pressure 120/74 01/26/2020957 EDT Pulse 55 01/26/2020957 EDT Temperature - - Respiratory Rate - - Oxygen Saturation - - Inhaled Oxygen Concentration - - Weight 80.8 kg (178 lb 3.2 oz) 01/26/2020 09 E DT Height 164.4 cm (5' 4.72) 01/26/2020957 EDT Body Mass Index 29.91 01/26/2020957 EDT documented in this encounter Patient Instructions * Patient Instructions* Laurence Weems MD - 01/26/2020 10:15 EDT Ekg for baseline Continue as needed ibuprofen Call for more symptoms Will obtain sales technician home theater notes for file. Your calcium level is normal. documented in this encounter Progress Notes * Laurence Weems MD - 01/26/2020 1015 EDT [facility] Rheumatology Chief Complaint Patient presents with ??? New Patient Visit Patient states she is having no pain today besides a very mild headache. 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 Presented with pebbly rash in both axillae. Biopsy revealed granulomatous changes. She was seen in dermatology, [facility]. Told she had sarcoidosis. No treatment offered. Has had no increase or decrease in lesions. Patient also has had an increase in joint pain and arthralgias. Affected joints: Left elbow intermittently, right knee, ankles. She reports 2 times a month she will have a day of achiness. Takes 40 mg of ibuprofen and symptoms resolved. Single episode of injected right eye. Seen by optometry. Told this could be rosacea of the eye. Also question of possibly being related to sarcoidosis. No history of pars planitis or uveitis. Generally has very dry eyes. Denies any cough or shortness of breath. No change in exercise tolerance. Malaise and fatigue, better since diagnosis of sleep apnea. Uses trazodone for sleep. Has diverticulosis, occasional bright red blood per rectum. Screened regularly with colonoscopies. Reports that in the was being treated for chronic Lyme disease. Treated with a variety of antibiotics and hydroxychloroquine for 1 to 2 years. During the same time she developed erythema nodosum and ankle pain. A chest x-ray performed at that time was negative. There is no history of nephrolithiasis or hypercalcemia. The patient is recently had right-sided discomfort which was diagnosed as gastroesophageal reflux disease after a negative right upper quadrant ultrasound. The patient has experienced food related headaches recently. Generally modifies her diet. Avoiding alcohol which seems to be 1 of her triggers. Reports occasional palpitations but no history of syncope. Trying to lose weight, recently having more success with dietary changes. Generally feels well not particularly interested in taking medication, here to explore symptoms anddifferent options. Current Outpatient Medications: azelaic acid/ceramide 1,3,6-11 (FINACEA PLUS TOPICAL) escitalopram oxalate (LEXAPRO) 20 mg tablet fluticasone propionate (FLONASE) 50 mcg/actuation nasal spray ibuprofen (MOTRIN) 200 mg tablet inulin (FIBER GUMMIES ORAL) magnesium chloride (SLOW-MAG) 71.5 mg Omeprazole 20 mg tablet,delayed release (DR/EC) oxygen-air delivery systems (HORIZON NASAL CPAP SYSTEM MISC) traZODone (DESYREL) 50 mg tablet No current facility-administered medications for this visit. Allergies include: Sulfa (sulfonamide antibiotics) No past medical history on file. Family History Problem Relation Age of Onset ??? Heart Failure Mother ??? Aortic stenosis Mother ??? Lung Cancer Mother ??? COPD Father ??? Lung Cancer Father ??? Diabetes Maternal Grandfather ??? Anxiety Disorder Daughter ??? 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 No illicit drug use. Review of Systems: 13 point ROS was done with the patient. See scanned document for details. Pertinent positives and negatives are noted in the HPI. Physical Examination: BP 120/74 Pulse 55 Ht 164.4 cm (64.72) Wt 80.8 kg (178 lb 3.2 oz) BMI 29.91 kg/m?? Pleasant well-appearing woman EYES: Conjunctivae not injected ENT: No oral ulcers, dentition is good. NECK: Normal extension and lateral rotation without pain. NO lymphadenopathy. CHEST: Clear to auscultation bilaterally. CARDIOVASCULAR: Regular rate and rhythm. No peripheral edema. No skipped beats ABDOMEN: Soft, non tender. No hepatosplenomegaly. JOINT EXAM: CMC squaring is present. Tender over the MCP without enlargement. Mild tenderness end range of motion in the elbows shoulders unremarkable Bony enlargement bilateral knees. Ankles unremarkable. SKIN: No rash on arms, legs, trunk. Axillae have erythematous dots. No nail pitting. No dilated capillary loops in the nail beds. NEURO: Strength 5/5. Sensation intact to light touch. Spine: No kyphosis no point tenderness. Affect: Pleasant and appropriate Labs: YIN negative, rheumatoid factor negative. BMP within normal limits including a calcium of 9.3 in July 2019. Hemoglobin A1c 5.7 64-year-old woman presents here for evaluation of arthralgias. 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 She has evidence of osteoarthritis on examination. She endorses occasional palpitations. Calcium is normal. There is a history of inflammation of the eyes and dry eye, is unclear if she actually had uveitis, sounds more consistent with rosacea by her description. Cutaneous sarcoidosis: Generally observational follow-up is recommended. There is no data to support use of systemic DMARD therapy. -Follow clinically Arthralgias and myalgias: Clinically there is no evidence of synovitis. I do not think it is necessary to add DMARD therapy. Should increased aches and pains develop we could consider an under takinga therapeutic trial of hydroxychloroquine -Continue ibuprofen as needed for aches and pains Palpitations: Most likely these are not clinically significant, however, given that there is the possibility of cardiac involvement with sarcoidosis we will order an EKG today to exclude heart block -EKG ordered today Follow-up: Annually sooner for new symptoms. Information on sarcoidosis and its implications provided. Diagnosis / Assessment: Laurence Weems MD 01/26/2020 10:12 EKG results show sinus caron. ? 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 Results called to [facility]. Left message with nurse to pass info on to Peng roberts. ? [facility] ? Test Date: ?2020-01-26 11:51:37 Pat Name: ? FRANCISCA PETERSEN ? Department: ?Room: ? Gender: ? F ?Primer Boxer: ?? TIB : ?1955 ? Requested By: Order Number: ?Reading MD: ?? Laura Mendoza ? Measurements Intervals ?[place]orton ? Rate: ? 52 ? P: ?65 NE: ? 178 ?QRS: ?59 QRSD: ? 100 ?T: ?55 QT: ? 460 ? QTc: ?427 ? Interpretive Statements Sinus bradycardia Possible Inferior infarct, age undetermined Cannot rule out Anterior infarct, age undetermined Abnormal ECG No previous ECG available for comparison Electronically Signed On 01-26-2020 12:17:19 EDT by Laura Mendoza [email or web address] Please fax this note. documented in this encounter Plan of Treatment Not on file documented as of this encounter Procedures Procedure Name Priority Date/Time Associated Diagnosis Comments EKG 12-LEAD Routine 01/26/2020 11:51 EDT Palpitations documented in this encounter Results * EKG 12-LEAD (01/26/2020 11:51 EDT) 01/26/2020 11:5 1 EDT [facility] - 01/26/2020 11:51 EDT ? [facility] ? Test Date: ?2020-01-26 11:51:37 Pat Name: ? FRANCISCA ZULEMA ? Department: ?Room: ? Gender: ? F ?Primer Boxer: ?? TIB : ?1955 ? Requested By: Order Number: ?Reading MD: ?? Laura Reji ? Measurements Intervals ?Norton ? Rate: ? 52 ? P: ?65 NE: ? 178 ?QRS: ?59 QRSD: ? 100 ?T: ?55 QT: ? 460 ? QTc: ?427 ? Interpretive Statements Sinus bradycardia Possible Inferior infarct, age undetermined Cannot rule out Anterior infarct, age undetermined Abnormal ECG No previous ECG available for comparison Electronically Signed On 01-26-2020 12:17:19 EDT by Laura Mendoza [email or web address] Procedure Note Laura Mendoza MD - 01/26/2020 [facility] Test Date: 2020-01-26 11:51:37 Pat Name: FRANCISCA PETERSEN Department: Room: Gender: F Primer Boxer: [facility] : 1955 Requested By: Order Number: Reading MD: Laura Mendoza Measurements Intervals Norton Rate: 52 P: 65 NE: 178 QRS: 59 QRSD: 100 T: 55 QT: 460 QTc: 427 Interpretive Statements Sinus bradycardia Possible Inferior infarct, age undetermined Cannot rule out Anterior infarct, age undetermined Abnormal ECG No previous ECG available for comparison Electronically Signed On 01-26-2020 12:17:19 EDT by Laura Mendoza [email or web address] us Laurence Weems MD CARDIAC ECG ORDERABLES F inal Result [facility] documented in this encounter Visit Diagnoses Diagnosis Sarcoidosis- Primary Joint pain of lower extremity Pain in joint, other specified sites Palpitations documented in this encounter Historical Medications * This list may reflect changes made after this encounter. oxygen-air delivery systems (HORIZON NASAL CPAP SYSTEM MISC) by misc (non-drug; combo route) route at bedtime. azelaic acid/ceramide 1,3,6-11 (FINACEA PLUS TOPICAL) Apply topically as needed. inulin (FIBER GUMMIES ORAL) Take by mouth. 2 gummies daily Omeprazole 20 mg tablet,delayed release (DR/EC) Take 20 mg by mouth daily. magnesium chloride (SLOW-MAG) 71.5 mg Take by mouth daily. traZODone (DESYREL) 50 mg tablet TK 2 TS PO HS 01/23/2020 fluticasone propionate (FLONASE) 50 mcg/actuation nasal spray 2 Sprays by nasal route daily. escitalopram oxalate (LEXAPRO) 20 mg tablet TK 1 T PO D 01/01/2020 ibuprofen (MOTRIN) 200 mg tablet Take 200 mg by mouth as needed. 02/20/2011 added in this encounter Care Teams Boiler Inspector Relationship Specialty Start Date End Date Viki Roberts APRN [address] [place], [place] [address] [address] [place] [address] PCP - General 01/19/20 documented as of this encounter
--- OUTSIDE RECORDS SUMMARY | 2024-11-10 15:07 | XMS_ITS | Encounter Summary ---
Author Organization [facility] Address [address] [place] [address] Care Team Providers Care Synchro Assembler Name Role Phone Emelia Morales MD Primary Care Provider Unavailabl e Encounter Details Date Type Department Care Team (Latest Contact Info) Description 08/12/2018 14:16 EDT - 08/12/2018 23:59 EDT Hospital Encounter [address] [address] Unknown, Provider, Discharge Disposition: Home or Self Care Social [...] Code Departure Means Destination Home or Self Detention documented in this encounter Plan of Treatment Not on file documented as of this encounter Visit Diagnoses Not on filedocumented in this encounter Care Teams Synchro Assembler Relationship Specialty Start Date End Date Emelia Morales MD PCP - General 12/24/14 01/18/20 documented as of this encounter
--- OUTSIDE RECORDS SUMMARY | 2024-11-10 15:07 | XMS_ITS | Encounter Summary ---
Author Organization [facility] Address [address] [place] [address] Care Team Providers Care Paint Mixer Machine Name Role Phone Unavailable Primary Care Provider Unavailabl e Encounter Details Date Type Department Care Team (Late st Contact Info) Description 04/26/2011 Results Only [facility] Medicine [address] [address] Emelia Morales MD Social History Tobacco Use [...] Diagnosis Comments PAP TEST- RESULT ONLY Routine 04/26/2011 0:00 EDT documented in this encounter Results * PAP TEST- RESULT ONLY (04/26/2011 0:00 EDT) Pathology Report: CYTOPATHOLOGY REPORT ? Reports generated via electronic interface contain original data; ? however they are lacking the format of the original report. ? Caution should be taken when reading/interpreti ng unformatted reports. ? Name: ? FRANCISCA POOLE ? Accession #: ? [id number] ? : ? 1955 (Age: 55) ??F ?Collect Date: ? 04/26/2011 ? Location: ? [facility] ? Receive Date: ? 04/27/2011 ? Provider: ?EMELIA FINE MD ? Copy to: ? Specimen/Source: ?Pap Test, Endocervix, ThinPrep Imaging System with ? manual evaluation ? Last Menstrual Period: ? DUNCAN ? SPECIMEN ADEQUACY ? Unsatisfactory for Evaluation, ? - insufficient numbers of squamous epithelial cells (less than 10% of expected ?? cellularity) ? GENERAL CATEGORIZATION ? Specimen processed and examined, but unsatisfactory for evaluation of ? epithelial abnormality. ? Recommend repeat Pap test or further follow up, as clinically indicated. ? Document reviewed and electronically signed by: ? Jammie Janna, CT(ASCP) ? Report Date: ??05/02/2011 08:19 ? End of Report ? [facility] 04/26/2011 04/27/2011 us Emelia Morales MD PATHOLOGY ORDERABLES Final Resul t [facility] [address] [place] [address] documented in this encounter Visit Diagnoses Not on filedocumented in this encounter
--- OUTSIDE RECORDS SUMMARY | 2024-11-10 15:07 | XMS_ITS | Encounter Summary ---
Author Organization [facility] Address [address] [place] [address] Care Team Providers Care Engraver Lettering Name Role Phone ArmandoViki murdock BRENDON Primary Care Provider [phone] Encounter Details Date Type Department Care Team (Late st Contact Info) Description 05/30/[address] [facility] Pathology & Laboratory Medicine - [facility] [address] [place] [address] Outr Resulting Lab, Provider Social History Tobacco Use Types Packs/Day Years [...] Procedure Name Priority Date/Time Associated Diagnosis Comments OSMOLALITY Routine 05/29/2022 14:40 EDT documented in this encounter Results * OSMOLALITY (05/29/2022 14:40 EDT) Osmolality, Serum 287 275 - 295 mOsm/kg 05/30/2022 17:45 EDT [facility] Blood VENOUS BLOOD / Unknown 05/29/2022 14:40 EDT 05/30/2022 16:46 EDT us Provider Outr Resulting Lab CHEMISTRY & BLOOD GA S ORDERABLES Final Result [facility] [address] [place] [address] documented in this encounter Visit Diagnoses Not on filedocumented in this encounter Care Teams Engraver Lettering Relationship Specialty Start Date End Date Viki Roberts APRN [address] [facility]STIAN[facility] [address] [place] [address] PCP - General 01/19/20 documented as of this encounter
--- OUTSIDE RECORDS SUMMARY | 2024-11-10 15:07 | XMS_ITS | Encounter Summary ---
Author Organization [facility] Address [address] [place] [address] Care Team Providers Care Cash Register Repairer Name Role Phone Unavailable Primary Care Provider Unavailabl e Encounter Details Date Type Department Care Team (Late st Contact Info) Description 11/17/2003 Results Only [facility] Medicine [address] [address] Emelia Morales MD Social History Tobacco Use [...] Priority Date/Time Associated Diagnosis Comments CYTOPATHOLOGY Routine 11/17/2003 0:00 EST documented in this encounter Results * CYTOPATHOLOGY (11/17/2003 0:00 EST) Pathology Report: CYTOPATHOLOGY REPORT Reports generated via electronic interface contain original data; however they are lacking the format of the original report. Caution should be taken when reading/interpreti ng unformatted reports. Name: ? FRANCISCA POOLE ? Accession #: ? [id number] : ? 1955 (Age: 48) ??F ?Collect Date: ? 11/17/2003 Location: ? [facility] ? Receive Date: ? 11/20/2003 Provider: ?EMELIA MORALES MD Copy to: ? Specimen/Source: ?ThinPrep Pap Test, Endocervix Last Menstrual Period: ? 10/28/03 Other: ? Additional clinical information: Friable appearing cervix with some spotting. ? SPECIMEN ADEQUACY ? Satisfactory for Evaluation - transformation zone component present GENERAL CATEGORIZATION ? Negative for Intraepithelial Lesion or Malignancy ? Document reviewed and electronically signed by: ? NATALIE Moreno(ASCP) ? Report Date: ??11/24/2003 13:04 End of Report [facility] 11/17/2003 11/20/2003 us Emelia Morales MD PATHOLOGY ORDERABLES Final Resul t [facility] [address] [place] [address] documented in this encounter Visit Diagnoses Not on filedocumented in this encounter
--- OUTSIDE RECORDS SUMMARY | 2024-11-10 15:07 | XMS_ITS | Encounter Summary ---
Author Organization [facility] Address [address] [place] [address] Care Team Providers Care Management Retail Intern Name Role Phone Unavailable Primary Care Provider Unavailabl e Encounter Details Date Type Department Care Team (Late st Contact Info) Description 11/22/2004 Results Only [facility] Medicine - [address] [address] Emelia Morales MD Social History Tobacco Use [...] Priority Date/Time Associated Diagnosis Comments CYTOPATHOLOGY Routine 11/22/2004 0:00 EST documented in this encounter Results * CYTOPATHOLOGY (11/22/2004 0:00 EST) Pathology Report: CYTOPATHOLOGY REPORT Reports generated via electronic interface contain original data; however they are lacking the format of the original report. Caution should be taken when reading/interpreti ng unformatted reports. Name: ? FRANCISCA POOLE ? Accession #: ? [id number] : ? 1955 (Age: 49) ??F ?Collect Date: ? 11/22/2004 Location: ? [facility] ? Receive Date: ? 11/24/2004 Provider: ?EMELIA MORALES MD Copy to: ? Specimen/Source: ?ThinPrep Pap Test, Endocervix Last Menstrual Period: ? 11/07/04 Other: ? Additional clinical information: Friable cervix HPVA - HPV testing requested if ASC-US on the current ThinPrep Pap test. ? SPECIMEN ADEQUACY ? Satisfactory for Evaluation - transformation zone component present GENERAL CATEGORIZATION ? Negative for Intraepithelial Lesion or Malignancy ? Document reviewed and electronically signed by: ? NATALIE Cabrera(ASCP) ? Report Date: ??11/28/2004 15:17 End of Report [facility] 11/22/2004 11/24/2004 us Emelia Morales MD PATHOLOGY ORDERABLES Final Resul t [facility] [address] [place] [address] documented in this encounter Visit Diagnoses Not on filedocumented in this encounter
--- OUTSIDE RECORDS SUMMARY | 2024-11-10 15:07 | XMS_ITS | Encounter Summary ---
Author Organization [facility] Address [address] [place] [address] Care Team Providers Care Clock Smith Name Role Phone Unavailable Primary Care Provider Unavailabl e Encounter Details Date Type Department Care Team (Late st Contact Info) Description 12/03/2014 Results Only [facility]- [facility] [phone] Hui Rincon, JOURNEYMAN TOOL AND DIE MAKER [address] [facility] [address] [place] [id number] Social History Tobacco Use Types Packs/Day Years [...] Diagnosis Comments PAP TEST- RESULT ONLY Routine 12/03/2014 0:00 EST documented in this encounter Results * PAP TEST- RESULT ONLY (12/03/2014 0:00 EST) Pathology Report: CYTOPATHOLOGY REPORT Reports generated via electronic interface contain original data; however they are lacking the format of the original report. Caution should be taken when reading/interpreti ng unformatted reports. Name: ? FRANCISCA POOLE ? Accession #: ? [id number] ? : ? 1955 (Age: 59) ??F ?Collect Date: ? 12/03/2014 ? Location: ? [facility] ? Receive Date: ? 12/04/2014 ? Provider: HUI RINCON JOURNEYMAN TOOL AND DIE MAKER Copy to: ? Final Report SPECIMEN ADEQUACY ? Satisfactory for Evaluation - transformation zone component present GENERAL CATEGORIZATION ? Negative for Intraepithelial Lesion or Malignancy ?? Last Menstrual Period: 5 YEARS Menstrual/Pregnanc y Status: ??Post Menopausal: 5 YEARS Other: Additional clinical information Specimen/Source: ??Pap Test, Cervix, ThinPrep Imaging System with manual evaluation Document reviewed and electronically signed by: ? Pee Rodriguez, NATALIE(ASCP) ? Report ??Date: 12/08/2014 13:51 HPV with Pap Test ? Date Ordered: ? 12/08/2014 ? Status: ?? Signed Out ?Date Complete: ? 12/10/2014 ? By: ??System Interface ? Date Reported: ? 12/10/2014 ? Interpretation RESULT: Negative for HPV. No E6 or E7 mRNA is detected from HPV types 16,18,31,33,35, 39,45,51,52,56,58, 59,66, and 68 by airplane navigator mediated amplification. Comments Document reviewed and electronically signed by: ? System Interface ? Report date: 12/10/2014 By the signature above, the attending physician certifies that he/she has personally conducted a gross and/or microscopic examination of the described specimens and rendered or confirmed the above diagnosis. End of Report [facility] 12/03/2014 12/04/2014 us Hui Rincon JOURNEYMAN TOOL AND DIE MAKER PATHOLOGY ORDERABLES Shirley hoyos Result [facility] [address] [place] [address] documented in this encounter Visit Diagnoses Not on filedocumented in this encounter
--- OUTSIDE RECORDS SUMMARY | 2024-11-10 15:07 | XMS_ITS | Encounter Summary ---
Author Organization [facility] Address [address] [place] [address] Care Team Providers Care Supervisor Tank House Name Role Phone Unavailable Primary Care Provider Unavailabl e Encounter Details Date Type Department Care Team (Late st Contact Info) Description 12/22/2014 Results Only [facility] - [facility] ([facility]) [address] [place], [place] [id number] Myla Lange MD [address] [place] [address] [place] [address] Social History Tobacco Use Types Packs/Day Years [...] Date/Time Associated Diagnosis Comments SURGICAL PATHOLOGY Routine 12/22/2014 9:23 EST documented in this encounter Results * SURGICAL PATHOLOGY (12/22/2014 9:23 EST) Pathology Report: SURGICAL PATHOLOGY REPORT Reports generated via electronic interface contain original data; however they are lacking the format of the original report. Caution should be taken when reading/interpret ing unformatted reports. Name: ? FRANCISCA POOLE ? Accession #: ? [id number] ? : ? 1955 (Age: 59) ??F ? Collect Date: ? 12/22/2014 ? Location: ? [facility] ? Receive Date: ? 12/23/2014 ? Provider: MYLA LANGE MD Copy to: KANCHAN PEGUERO MD ? Final Pathologic Diagnosis: CERVIX, POLYP, BIOPSY: - ??Abundant inspissated mucus. See comment. - ??Scant benign endocervical cells. Comment: The cervical mucus forms a well-defined mass-like structure; however, no epithelial polyp is identified. Deeper sections have been examined. (Dr. Santizo) ?? Document reviewed and electronically signed by: LORETTA CUBA MD Report ??Date: 12/25/2014 16:46 By the signature above, the attending physician certifies that he/she has personally conducted a gross and/or microscopic examination of the described specimens and rendered or confirmed the above diagnosis. Specimen(s) Received: Cervical polyp Clinical History: PMB Gross Description: ? Received in formalin labelled with proper patient identification (initials O, J) and cervical is an aggregate of slightly blood tinged mucus (1.0 x 0.7 x 0.5 cm). Submitted in toto in block 1. Traci Sanchez 12/23/2014 09:40 AM End of Report [facility] 12/22/2014 9:23 EST 12/23/2014 9:23 EST us Myla Lange MD PATHOLOGY ORDERABLES Final Resu lt [facility] [address] [place] [address] documented in this encounter Visit Diagnoses Not on filedocumented in this encounter
--- OUTSIDE RECORDS SUMMARY | 2024-11-10 15:07 | XMS_ITS | Encounter Summary ---
Author Organization [facility] Address [address] [place] [address] Care Team Providers Care Caustic Preparer Name Role Phone Unavailable Primary Care Provider Unavailabl e Encounter Details Date Type Department Care Team (Late st Contact Info) Description 03/25/2008 Results Only [facility] Medicine - [address] [address] Emelia Morales MD Social History Tobacco Use [...] Date/Time Associated Diagnosis Comments SURGICAL PATHOLOGY Routine 03/25/2008 0:00 EDT documented in this encounter Results * SURGICAL PATHOLOGY (03/25/2008 0:00 EDT) Pathology Report: SURGICAL PATHOLOGY REPORT Reports generated via electronic interface contain original data; however they are lacking the format of the original report. Caution should be taken when reading/interpreti ng unformatted reports. Name: ? FRANCISCA POOLE ? Accession #: ? [id number] ? : ? 1955 (Age: 52) ??F ? Collect Date: ? 03/25/2008 ? Location: ? [facility] ? Receive Date: ? 03/26/2008 ? Provider: EMELIA MORALES MD Copy to: ? Final Pathologic Diagnosis: ? Skin of leg, left upper, punch biopsy: 1. ?Melanocytic nevus, compound type, with unusual architectural features and mild-moderate cytologic atypia. ??See comment. ? - Nevus extends to peripheral edges of punch biopsy specimen. Comment: ? The biopsy consists of a compound melanocytic nevus that shows mild-moderate architectural disorder and cytologic atypia. ??The nevus is transected at the peripheral edges of the punch biopsy specimen. ??Therefore, features such as overall size, circumscription, and symmetry cannot be assessed. Given the degree of atypia, complete conservative excision of the lesion is recommended. ??(Dr. Herrera)/[facility] Microscopic Description: ? The epidermis is hyperplastic with elongate and anastomosing rete ridges. There is a compound proliferation of melanocytes with both epidermal and dermal components. ??The junctional melanocytes are arranged in nests and as individual cells. ??The nests predominate but vary to moderate degree in size, shape, and spacing. ??The nests are located between and the sides of rete ridges, in addition to at the tips of the ridges. ??Nests bridge rete ridges. ??Focally, individual melanocytes are prominent and unevenly spaced but show no confluent growth or well-developed upward migration. ??The melanocytes are enlarged and have ill-defined cytoplasm containing melanin pigment. ??The nuclei show a moderate degree of size and shape variation with occasional large, irregular forms. ??The dermal component consists of nests and cords of similar melanocytes that show fermenter wine maturation with descent. ??There is papillary dermal fibroplasia. ??(Dr. Herrera)/[facility] Document reviewed and electronically signed by: LAXMI HERRERA MD Report ??Date: 03/27/2008 16:59 By the signature above, the attending physician certifies that he/she has personally conducted a gross and/or microscopic examination of the described specimens and rendered or confirmed the above diagnosis. Specimen(s) Received: ? 10 mm punch bx pigmented nevi L upper leg Clinical History: ? Not listed Gross Description: ? Received in formalin labelled Zulema and L thigh pigmented nevi bx is a 0.2 cm in diameter and 0.2 cm in thickness punch biopsy of brown skin. Submitted intact in one cassette. ??(Dionisio Harrison)/[facility] End of Report [facility] 03/25/2008 03/26/2008 9:2 9 EDT us Emelia Morales MD PATHOLOGY ORDERABLES Final Resul t [facility] [address] [place] [address] documented in this encounter Visit Diagnoses Not on filedocumented in this encounter
--- OUTSIDE RECORDS SUMMARY | 2024-11-10 15:07 | XMS_ITS | Encounter Summary ---
Author Organization [facility] Address [facility] [place] [address] Care Team Providers Care Blintze Roller Name Role Phone Emelia Morales MD Primary Care Provider [phone] Encounter Details Date Type Department Care Team (Late st Contact Info) Description 10/27/2010 8:30 AM EST Follow-[place] [address] Marco Antonio Whitley MD [facility] [place] [address] Social History Tobacco Use Types Packs/Day Years Used Date Smoking Tobacco: Never Assessed Sex and Gender Information Value Date Recorded Sex Assigned at Not on file Gender Identity Not on file Sexual Orientation Not on file documented as of this encounter Plan of Treatment Not on file documented as of this encounter Visit Diagnoses Not on filedocumented in this encounter Care Teams Blintze Roller Relationship Specialty Start Date End Date Emelia Morales MD [address] [place] [address] PCP - General 10/11/10 documented as of this encounter
--- OUTSIDE RECORDS SUMMARY | 2024-11-10 15:07 | XMS_ITS | Encounter Summary ---
Author Organization [facility] Address [address] [place] [address] Care Team Providers Care Supervisor Dog License Officer Name Role Phone Viki Roberts APRN Primary Care Provider [phone] Encounter Details Date Type Department Care Team (Latest Contact Info) Description 11/02/2020 Lab Requisition [facility] Pathology & Laboratory Medicine - [facility] [address] [place] [address] Viki Roberts APRN [address] [phone] Encounter for general adult medical examination without abnormal findings; Encounter for screening for malignant neoplasm of cervix; Encounter for gynecological examination (general) (routine) without abnormal findings Social History Tobacco Use Types Packs/Day Years [...] Date/Time Associated Diagnosis Comments PAP TEST Today 10/29/2020 9:15 EST Encounter for general adult medical examination without abnormal findings Encounter for screening for malignant neoplasm of cervix Encounter for gynecological examination (general) (routine) without abnormal findings HPV DNA DETECTION WITH GENOTYPING, PCR Today 10/29/2020 9:15 EST Encounter for general adult medical examination without abnormal findings Encounter for screening for malignant neoplasm of cervix Encounter for gynecological examination (general) (routine) without abnormal findings documented in this encounter Results * HUMAN PAPILLOMAVIRUS (HPV) DETECTION-HIGH RISK TYPES (10/29/2020 9:15 EST) HPV other High Risk types, PCR Negative Negative 11/09/2020 15:06 [facility] Comment:No E6 or E7 mRNA is detected from HPV types 16,18,31,33,35,39,45,51,52,56,58,59,66, and 68 by gospel singer mediated amplification. Papanicolaou smear specimen (specimen) CERVIX UTERI STRUCTURE / Unknown 10/29/2020 9:15 EST 11/08/2020 9:28 EST Viki Roberts CORDUROY CUTTING SUPERVISOR MICROBIOLOGY - GENERAL OR DERABLES Final Result [facility] [address] [place] [address] * PAP TEST (10/29/2020 9:15 EST) Specimens A. Cervix and/or Endocervix , ThinPrep Imaging System with Manual Evaluation 11/09/2020 15:06 [facility] Specimen Adequacy Satisfactory for Evaluation - transformation zone component present 11/09/2020 15:06 [facility] General Categorization Negative for intraepithelial lesion or malignancy 11/09/2020 15:06 [facility] Attestation . 11/09/2020 15:06 [facility] at 1506 Clinical History See below 11/09/20 15:06 [facility] HPV The result for the Human Papillomavirus (HPV) Detection-High Risk Types is Negative. No E6 or E7 mRNA is detected from HPV types 16,18,31,33,35,39 ,45,51,52,56,58,5 9,66, and 68 by gospel singer mediated amplification.May ting was performed on specimen [id number] and was resulted on 11/09/2020 1505 EST by SERJIO, LAB INSTRUMENT RESULTS IN 11/09/2020 15:06 EST [facility] Performing Lab [facility] 11/09/2020 15:06 EST [facility] Scanned Images 11/09/2020 15:06 EST [facility] Papanicolaou smear specimen (specimen) CERVIX UTERI STRUCTURE / Unknown 10/29/2020 9:15 EST 11/02/2020 9:40 EST us Viki Roberts CORDUROY CUTTING SUPERVISOR PATHOLOGY ORDERABLES Shirley hoyos Result [facility] [address] [place] [address] documented in this encounter Visit Diagnoses Diagnosis Encounter for general adult medical examination without abnormal findings Unspecified general medical examination Encounter for screening for malignant neoplasm of cervix Screening for malignant neoplasm of the cervix Encounter for gynecological examination (general) (routine) without abnormal findings documented in this encounter Care Teams Supervisor Dog License Officer Relationship Specialty Start Date End Date Viki Roberts APRN [address] [place] [phone] PCP - General 01/19/20 documented as of this encounter
--- OUTSIDE RECORDS SUMMARY | 2024-11-10 15:07 | XMS_ITS | Encounter Summary ---
Author Organization [facility] Address [facility] [place] [address] Care Team Providers Care Dust Mill Operator Name Role Phone Unavailable Primary Care Provider Unavailabl e Encounter Details Date Type Department Care Team (Late st Contact Info) Description 10/03/2010 8:00 PM EST Procedure visit Sleep Medicine [place] [id number] Leda Kaur MD [facility] [address] SLEEP [place] [address] Social History Tobacco Use Types Packs/Day Years [...]
--- OUTSIDE RECORDS SUMMARY | 2024-11-10 15:07 | XMS_ITS | Referral Summary ---
Author Organization [facility] Address [address] [place] [address] Care Team Providers Care Drafter Refrigeration Name Role Phone Viki Roberts APRN Primary Care Provider [phone] Allergies Active Allergy Reactions Criticality Noted Date [...] Sarcoidosis 01/26/2020 Overview (01/26/2020): Skin biopsy at [place] 2018 Seen 4 season 4886-1915 In 1990s episode of e nodosum and cxr negative. (Lyme HX -treated for several years) RACHEL (obstructive sleep apnea) 01/26/2020 Diverticulitis 01/26/2020 Social History Tobacco Use Types Packs/Day Years [...] on file Sexual Orientation Not on file Last Filed Vital Signs Vital Sign Reading Time Taken Comments Blood Pressure 120/74 01/26/2020957 EDT Pulse 55 01/26/2020957 EDT Temperature - - Respiratory Rate - - Oxygen Saturation - - Inhaled Oxygen Concentration - - Weight 80.8 kg (178 lb 3.2 oz) 01/26/2020957 E DT Height 164.4 cm (5' 4.72) 01/26/2020957 EDT Body Mass Index 29.91 01/26/2020957 EDT Plan of Treatment Not on file Insurance * Guarantor: Tonie Poole Account Type Relation to Patient Date of Phone Billing Address Personal/Family Self 1955 [phone] x4 (Work) [address] [place] [address] [employer] [phone] x4 (Work) [address] [place] [id number] * Guarantor: Tonie Poole Account Type Relation to Patient Date of Phone Billing Address Personal/Family Self 1955 [phone] x4 (Work) [address] [place] [address] * Guarantor: Tonie Poole Account Type Relation to Patient Date of Phone Billing Address Personal/Family Self 1955 [phone] x4 (Work) [address] [place] [address] * Guarantor: Tonie Poole Account Type Relation to Patient Date of Phone Billing Address Personal/Family Self 1955 [phone] x4 (Work) [address] [place] [address] * Guarantor: Tonie Poole Account Type Relation to Patient Date of Phone Billing Address Personal/Family Self 1955 [phone] x4 (Work) [address] [place] [address] * Guarantor: Tonie Poole Account Type Relation to Patient Date of Phone Billing Address Personal/Family Self 1955 [phone] x4 (Work) [address] [place] [address] * Guarantor: Tonie Poole Account Type Relation to Patient Date of Phone Billing Address Personal/Family Self 1955 [phone] x4 (Work) [address] [place] [address] Care Teams Drafter Refrigeration Relationship Specialty Start Date End Date Viki Roberts APRN [address] [place] [address] PCP - General 01/19/20
--- OUTSIDE RECORDS SUMMARY | 2024-11-10 15:07 | XMS_ITS | Encounter Summary ---
Author Organization [facility] Address [address] [place] [address] Care Team Providers Care Bundle Wrapper Name Role Phone Emelia Morales MD Primary Care Provider Unavailabl e Encounter Details Date Type Department Care Team (Late st Contact Info) Description 02/27/2019 Results Only [facility] [phone] Hui Rincon, EARLY HEAD START DIRECTOR [address] [facility] [address] [place] [phone] Social History Tobacco Use Types Packs/Day Years [...] Date/Time Associated Diagnosis Comments SURGICAL PATHOLOGY Routine 02/27/2019 16 :09 EDT documented in this encounter Results * SURGICAL PATHOLOGY (02/27/2019 16:09 EDT) Pathology Report: SURGICAL PATHOLOGY REPORT Reports generated via electronic interface contain original data; however they are lacking the format of the original report. Caution should be taken when reading/interpret ing unformatted reports. Name: ? FRANCISCA POOLE ? Accession #: ? [id number] ? : ? 1955 (Age: 63) ??F ? Collect Date: ? 02/27/2019 ? Location: ? [facility] ? Receive Date: ? 02/28/2019 ? Provider: HUI RINCON EARLY HEAD START DIRECTOR Copy to: ? Final Pathologic Diagnosis: SKIN OF ARM, LEFT UPPER, PUNCH BIOPSY: - Lichenoid interface dermatitis. ??See comment. Comment: The findings are those of a lichenoid interface dermatitis. 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 ??Features of sarcoidosis are not noted. ??(Dr. Guerrero)/[facility] Document reviewed and electronically signed by: SWETA GUERRERO MD Report ??Date: 03/03/2019 11:37 By the signature above, the attending physician certifies that he/she has personally conducted a gross and/or microscopic examination of the described specimens and rendered or confirmed the above diagnosis. Specimen(s) Received: 3.0 mm punch biopsy L upper arm Clinical History: Skin lesion L upper arm x 4 mos, red scaling hx of cutaneous sarcoidosis Gross Description: ? Received in formalin labelled with proper patient identification (initials O, J) and L upper arm is a punch biopsy of pearly white skin (0.3 cm in diameter x 0.2 cm in thickness). The specimen is submitted intact in 1. EMMY Pereira (ASCP) 02/28/2019 4:20 PM End of Report [facility] 02/27/2019 16:0 9 EDT 02/28/2019 16:09 EDT us Hui Rincon EARLY HEAD START DIRECTOR PATHOLOGY ORDERABLES Shirley romain Result [facility] [address] [place] [address] documented in this encounter Visit Diagnoses Not on filedocumented in this encounter Care Teams Bundle Wrapper Relationship Specialty Start Date End Date Emelia Morales MD PCP - General 12/24/14 01/18/20 documented as of this encounter
--- OUTSIDE RECORDS SUMMARY | 2024-11-10 15:07 | XMS_ITS | Encounter Summary ---
Author Organization [facility] Address [address] [place] [address] Care Team Providers Care Emergency Department Rn Name Role Phone Emelia Morales MD Primary Care Provider Unavailabl e Encounter Details Date Type Department Care Team (Latest Contact Info) Description 02/27/2019 13:31 EDT - 02/27/2019 23:59 EDT Hospital Encounter [address] [address] Unknown, Provider, Discharge Disposition: Home or Self [...] Code Departure Means Destination Home or Self Half-Way documented in this encounter Plan of Treatment Not on file documented as of this encounter Visit Diagnoses Not on filedocumented in this encounter Care Teams Emergency Department Rn Relationship Specialty Start Date End Date Emelia Morales MD PCP - General 12/24/14 01/18/20 documented as of this encounter
--- OUTSIDE RECORDS SUMMARY | 2024-11-10 15:07 | XMS_ITS | Encounter Summary ---
Author Organization [facility] Address [facility] [place] [address] Care Team Providers Care Power Reactor Operator Name Role Phone Unavailable Primary Care Provider Unavailabl e Encounter Details Date Type Department Care Team (Late st Contact Info) Description 10/04/2010 8:30 AM EST Follow-[place] [address] Leda Kaur MD [facility] [place] [address] Social History Tobacco Use Types Packs/Day Years [...]
[2024-11-10 15:12] LABS: Estimated GFR 61.75 (mL/min/1.73m2)
== END 2024-11-10 15:04 | disposition home or self-care (01) ==
LOC: LBO 15:05
PROVIDERS: PCP Nurse Practitioner Family; Visit Provider Otolaryngology
DX: H90.3 Sensorineural hearing loss, bilateral (principal); H93.299 Other abnormal auditory perceptions, unspecified ear
CPT/HCPCS: 36415; 82565

== ENCOUNTER 2024-11-26 03:26 | Outpatient (CLI) | payer MEDICARE, BC, SELFPAY ==
--- NOTE | 2024-11-26 08:00 | DI.MRI_ITS ---
Exam(s) MR IAC BRAIN WO/W EXAM: MR IAC BRAIN WO/W CLINICAL HISTORY: RT greater than lT sn hearing loss,asymmetrical,impairment of speech TECHNIQUE: Multiplanar multisequence MRI of the brain was performed. Both noninfused and contrast i nfused sequences were performed. IAC sequences also performed, including sub mm ultra thin slice mary carmen ging of the IAC's IV Contrast injected was 18 cc Dotarem. COMPARISON: No exams were available for comparison FINDINGS: CEREBRAL PARENCHYMA: No evidence of intracranial hemorrhage, mass effect nor shift of midline structu re. No extraaxial fluid collections. Ventricles are not enlarged nor shifted. There is no significant focal signal abnormality in the cerebellar hemispheres nor within the matt, m idbrain, and thalami. There are a few small nonspecific foci of FLAIR bright signal abnormality in the periventricular whit e matter bilaterally, these measuring up to 4 mm. Largest is in the right frontal lobe. These are n ot associated with hemorrhage, surrounding edema, enhancement, nor restricted diffusion on DWI. DWI: No areas of restricted diffusion to suggest acute ischemic event. SWI: No microhemorrhages evident. INTERNAL AUDITORY CANALS: There are no masses in the cerebellopontine angles. There also no enhancin g lesions in the internal auditory canals to suggest the presence of intra canalicular acoustic neuro ma/schwannoma. The 7th and 8th cranial nerves within the internal auditory canals appear unremarkabl e. There are no ring enhancing lesions in the brain. There is no abnormal meningeal enhancement. PITUITARY GLAND: No mass nor parasellar abnormality. No obvious abnormality in the cavernous sinuses. FLOW VOIDS: The expected flow void are noted. No evidence of obvious aneurysm nor obvious vascular ma lformation. PARANASAL SINUSES: The paranasal sinuses appear unremarkable. There are also no mastoid effusions. ORBITS: No obvious abnormal findings. IMPRESSION: 1. No evidence of acoustic neuroma/schwannoma 2. There are a few nonspecific white matter foci of signal abnormality measuring up to 4 mm, as descr ibed above, these not associated with hemorrhage, surrounding edema, enhancement, nor restricted diff usion. There are also no ring enhancing lesions in the brain and there is no abnormal meningeal enha ncement. No abnormal focal findings in the cerebellar hemispheres. DATA REPOSITORY:
[2024-11-26] MEDS: Gadoterate meglumine 20 ML SYRINGE 18 ML IVP (13:58)
[2024-11-26] MEDS: Normal Saline Flush 10 ML SYR IVP (13:59)
== END 2024-11-26 03:46 ==
LOC: DI 03:26
PROVIDERS: PCP Nurse Practitioner Family; Visit Provider Otolaryngology
DX: H90.3 Sensorineural hearing loss, bilateral (principal)
CPT/HCPCS: 70553

== ENCOUNTER → 2024-12-24 14:43 | Outpatient (BNVA) | payer MEDICARE, BC, SELFPAY | PROVIDERS: PCP Nurse Practitioner Family; Referring Provider Nurse Practitioner Family; Visit Provider Nurse Practitioner Adult Health | DX: G56.01 Carpal tunnel syndrome, right upper limb (principal) | CPT/HCPCS: 95908; 99203 ==

== ENCOUNTER 2025-02-13 17:55 | Outpatient (REF) | payer MEDICARE, BC, SELFPAY ==
[2025-02-13 21:38] LABS: HCT 35.5 % (36.0-46.0); MCH 31.5 pg (27.0-33.0); MCHC 33.8 % (32.0-36.0); MCV 93 fL (80-95); MPV 10.4 fL (8.0-11.0); Platelet Count 205 10^3/uL (130-400); RBC 3.81 10^6/uL (3.93-5.22); RDW 12.9 % (11.7-14.6); RDW-SD 44.1 fL; WBC 3.64 10^3/uL (4.4-10.8)
[2025-02-13 22:01] LABS: ALT 31 U/L (14-59); AST 24 U/L (15-37); Albumin 3.8 g/dL (3.4-5.0); Alkaline Phosphatase 48 U/L (46-116); Anion Gap 4.9 mmol/L (3-11); BUN 18 mg/dL (7-18); Bilirubin, Total 0.4 mg/dL (0.2-1.0); CO2 29.1 mmol/L (21.0-32.0); CREATININE 0.8 mg/dL (0.55-1.02); Calcium 9.5 mg/dL (8.5-10.1); Chloride 98 mmol/L (98-107); Estimated GFR 80.71 (mL/min/1.73m2); Glucose 111 mg/dL (74-106); NT-proBNP 72 pg/mL (<300); Potassium 4.5 mmol/L (3.5-5.1); Sodium 132 mmol/L (136-145); Total Protein 6.6 g/dL (6.4-8.2)
== END 2025-02-13 17:56 | disposition home or self-care (01) ==
LOC: NCHCN 17:55
PROVIDERS: PCP Nurse Practitioner Family; Visit Provider Family Medicine
DX: R60.0 Localized edema (principal)
CPT/HCPCS: 80053; 85027; 83880

== ENCOUNTER → 2025-02-19 13:50 | Outpatient (BNVA) | payer MEDICARE, BC, SELFPAY | PROVIDERS: PCP Nurse Practitioner Family; Referring Provider Nurse Practitioner Family; Visit Provider Student in an Organized Health Care Education/Training Program | DX: G56.01 Carpal tunnel syndrome, right upper limb (principal) | CPT/HCPCS: 99213 ==

== ENCOUNTER 2025-02-24 06:09 | Day surgery (SDC) | payer MEDICARE, BC, SELFPAY ==
[2025-02-24 06:31] VITALS: BP 140/50; PULSE 69; RESP 20; TEMP 36.7; O2SAT 95
[2025-02-24] MEDS: Cephalexin 500 MG CAP 1000 MG PO (06:38)
--- NOTE | 2025-02-24 07:17 | W.PM.DSUDISC ---
Date of service: 02/24/25 Discharge Plan Disposition Patient Disposition: Home Condition: Good Discharge Details Reason For Visit: Right carpal tunnel syndrome Attending Provider: Rafy Pearson Primary Care Provider: Viki Roberts Home Meds and New Rx's Prescriptions: New hydrocodone-acetaminophen 5-325 mg tablet 1 tab PO Q6H PRN (Reason: severe pain) Qty: 4 0RF Rx Instructions: Take one tablet up to every 6 hours as needed for severe postoperative pain acetaminophen 500 mg tablet 500 mg PO Q6H PRN (Reason: pain) Qty: 60 2RF ibuprofen 600 mg tablet 600 mg PO TID PRN (Reason: pain) Qty: 60 0RF Continued montelukast [Singulair] 10 mg PO DAILY trazodone 100 mg tablet 100 mg PO QHS gabapentin 300 mg capsule 300 mg PO BID metronidazole [MetroCream] 45 GM cream 45 g Topical PRN PRN fluticasone propionate [Flonase] 16 GM spray,suspension 16 g NS PRN PRN vitamin B complex Tablet 1 tab PO DAILY turmeric 400 mg capsule 1,500 mg PO DAILY escitalopram oxalate [Lexapro] 20 MG tablet 20 mg PO DAILY Discharge Instructions Stand Alone Forms: Lili Lucero Tunnel Release Referrals: Rafy Pearson MD [ [facility] STAFF PHYSICIAN] - Activity:: Elevate Remove Dressings/Wound Care:: 48 hours Shower/Bathe:: 48 hours Diet:: As Tolerated Discharge Orders Discharge Orders: Discharge Order (Routine); Ordered 02/24/25 Ordered By: Ching Woodward
--- NOTE | 2025-02-24 07:21 | W.PM.OP ---
Operative Note Operative Note PRE-OP DIAGNOSIS: Right Carpal Tunnel Syndrome POST-OP DIAGNOSIS: same PROCEDURE: Right Endoscopic Carpal Tunnel Release SURGEON: Rafy Pearson ANESTHESIA TYPE: Local By Surgeon Refer to Anesthesia Record ESTIMATED BLOOD LOSS: 0 PATHOLOGY: none sent TOURNIQUET TIME: 4 COMPLICATIONS: None Patient was transported to: same day Patient's condition: stable Indications: I have seen Chilo in clinic for symptoms of carpal tunnel syndrome. The numbness, tingling, and pain limited function. Clinical exam findings confirmed the diagnosis of carpal tunnel syndrome. Nonoperative measures such as bracing, time, activity modifications had been tried but disability and pain persisted. I discussed carpal tunnel release with the patient. I reviewed the risks of the procedure to include, but not limited to, bleeding, infection, pain, stiffness, incomplete release, damage to nerves or vessels, persistent numbness, recurrence. Despite these risks, Chilo elected to proceed. Findings: There was tightened carpal tunnel. This was dilated and released successfully with the endoscopic with increased space within the tunnel. The antebrachial fascia was released proximally freeing the median nerve at the wrist. Procedure Description: Chilo was greeted in the preoperative holding area where the correct side was identified and marked. The consent was reviewed with the patient and signed. The history and physical was updated. All questions were answered. She was taken back to the operating room. The patient was placed into the supine position on the operating room table with the right arm on an arm board. A nonsterile tourniquet was placed high onto the arm. All bony prominences were well padded. Prophylactic antibiotics in the form of Cefazolin were administered. The right arm was then prepped with Chloraprep and draped in a standard fashion with stockinette and extremity drape. A timeout to confirm correct identity, side and site, procedure, allergies, anesthesia, and medical concerns was performed. The surgical site was marked in the volar wrist creases in line with the radial border of the fourth ray. This area was anesthetized with approximately 6cc of 1% Lidocaine. The limb was then exsanguinated with an Esmarch. The skin was incised with a 15 blade, approximately 1cm. The skin only was cut and the deeper tissue was dissected bluntly with a tenotomy scissor, avoiding passing nerve and venous structures. The fascia was penetrated and opened bluntly. A two-prong skin hook was placed under this proximal fascial edge. A series of hamate finders were used to identify and dilate the carpal tunnel. Synovial elevator was used to free synovial attachments to the underside of the transverse carpal ligament. My thumb was kept in the palm to ayan the distal extent of the carpal tunnel and correctly position the hand. The Microaire endoscope was inserted without difficulty and without resistance. Excellent visualization showed horizontally running fibers of the transverse carpal ligament (TCL). The distal extent of the TCL was visualized and the end of the scope palpated with the thumb. The blade was elevated and withdrawn from distal to proximal. The TCL was split into two flaps. The endoscope was reinserted to confirm complete release and any remnant ligament was incised. The scope was withdrawn and the proximal aspect of the carpal tunnel was grossly inspected and appeared release with the median nerve visible. The antebrachial fascia at the level of the wrist was then freed from the overlying skin and then the underlying median nerve with blunt dissection. This was transected longitudinally for about 3cm proximal to the wrist incision. The wound was then irrigated with easy flow of irrigant distally and proximally. The incision was closed with a single 4-0 Nylon suture. The wound was dressed with Xeroform, Gauze, Kerlix and Tyler. The tourniquet was deflated with the initial dressing and held with some pressure. Blood flow returned easily to all digits with capillary refill less than 2 seconds. The patient tolerated the procedure well and was returned to the Same Day Surgery area in a stable condition suffering no known complication. Date of Procedure: 02/24/25
[2025-02-24] MEDS: Lidocaine 1% Pres-Free W/EPI 1/200,000 10 ML VIAL (07:33)
[2025-02-24] MEDS: Sodium Bicarbonate 50 MEQ/50 ML VIAL (07:33)
[2025-02-24 07:46] VITALS: BP 132/75; PULSE 61; RESP 16; TEMP 36.6; O2SAT 96
== END 2025-02-24 08:13 | disposition home or self-care (01) ==
PROVIDERS: PCP Nurse Practitioner Family; Visit Provider Student in an Organized Health Care Education/Training Program
PROC: 01N54ZZ Release Median Nerve, Percutaneous Endoscopic Approach (ICD-10-PCS; CPT 29848; principal; 2025-02-24 07:30)
DX: G56.01 Carpal tunnel syndrome, right upper limb (principal)
CPT/HCPCS: 29848; J2004

== ENCOUNTER → 2025-03-06 10:36 | Outpatient (BNVA) | payer MEDICARE, BC, SELFPAY | PROVIDERS: PCP Nurse Practitioner Family; Referring Provider Nurse Practitioner Family | DX: Z47.89 Encounter for other orthopedic aftercare (principal); R60.0 Localized edema | CPT/HCPCS: 99024 ==

== ENCOUNTER 2025-05-13 23:09 | Emergency (ER) | payer MEDICARE, BC, SELFPAY ==
[2025-05-13 23:12] VITALS: BP 178/90; PULSE 69; RESP 18; TEMP 36.7; O2SAT 98
--- NOTE | 2025-05-14 00:04 | W.ED.GENAD ---
Discharge Plan Disposition Patient Disposition: Home Condition: Good Discharge Details Clinical Impression: Sciatica Primary Care Provider: Viki Roberts ED Provider: Colleen Cline Home Meds and New Rx's Prescriptions: Continued montelukast [Singulair] 10 mg PO DAILY trazodone 100 mg tablet 100 mg PO QHS fluticasone propionate [Flonase] 16 GM spray,suspension 16 g NS PRN PRN vitamin B complex Tablet 1 tab PO DAILY turmeric 400 mg capsule 1,500 mg PO DAILY escitalopram oxalate [Lexapro] 20 MG tablet 20 mg PO DAILY acetaminophen 500 mg tablet 500 mg PO Q6H PRN (Reason: pain) Qty: 60 2RF ibuprofen 600 mg tablet 600 mg PO TID PRN (Reason: pain) Qty: 60 0RF cyclobenzaprine 10 mg tablet 10 mg PO DAILY Patient Comments: TAKE ONE TABLET BY MOUTH EVERY DAY AT BEDTIME FOR 30 DAYS gabapentin 300 mg capsule 300 mg PO BID loratadine [Claritin] 10 mg tablet 10 mg PO DAILY Discontinued metronidazole [MetroCream] 45 GM cream 45 g Topical PRN PRN Discharge Instructions Instructions: Sciatica ED Additional Instructions: Call your primary care doctor in the morning to schedule an appointment to be seen within the next 48 hours to followup on your visit here and to discuss pain control or further imaging. Return to the emergency department for new or worsening symptoms including fever, urinary or bowel incontinence, numbness in your groin, inability to walk, worsening numbness or weakness. HPI General Mode of arrival: ambulatory. Date/Time Provider Initiated Documentation: 05/13/25 23:15. Limitations to Documentation: no limitations. Information obtained by: patient and family. HPI Narrative: 69yo F with hx of sciatica presenting for worsening low back pain. Pain is low lumbar/sacral, left sided, and radiates all the way down her left leg. Also has some numbness to LLE. Has seen her PCP for this and is on gabapentin and has been to PT. Symptoms have been worsening over the past week; saw her PCP and was started on 5 day course of prednisone (completed today) and been taking flexeril. Pain continues to be worse than usual this evening and is keeping her awake. She is having difficultly walking due to pain. No recent falls, injuries, no hx of IVDU or spinal instrumentation. Otherwise in her usual state of health with no fevers, chills, rash, bowel/bladder incontinence, saddle anesthesia, nausea, vomiting, dysuria, hematuria, or other concerns. Related Data Home Medications ?Medication ?Instructions ?Recorded ?Confirmed fluticasone propionate 50 16 g NS PRN PRN 12/22/14 05/14/25 mcg/actuation nasal spray,suspension (Flonase) escitalopram oxalate 20 mg tablet 20 mg PO DAILY 05/28/17 05/14/25 (Lexapro) montelukast 10 mg PO DAILY 03/12/23 05/14/25 turmeric 400 mg capsule 1,500 mg PO DAILY 10/30/24 05/14/25 vitamin B complex 1 tab PO DAILY 10/30/24 05/14/25 trazodone 100 mg tablet 100 mg PO QHS 12/24/24 05/14/25 acetaminophen 500 mg tablet 500 mg PO Q6H PRN pain #60 tabs 02/24/25 05/14/25 ibuprofen 600 mg tablet 600 mg PO TID PRN pain #60 tabs 02/24/25 05/14/25 cyclobenzaprine 10 mg tablet 10 mg PO DAILY 05/14/25 05/14/25 gabapentin 300 mg capsule 300 mg PO BID 05/14/25 05/14/25 loratadine 10 mg tablet (Claritin) 10 mg PO DAILY 05/14/25 05/14/25 Previous Rx's ?Medication ?Instructions ?Recorded acetaminophen 500 mg tablet 500 mg PO Q6H PRN pain #60 tabs 02/24/25 ibuprofen 600 mg tablet 600 mg PO TID PRN pain #60 tabs 02/24/25 Allergies Allergy/AdvReac Type Severity Reaction Status Date / Time doxycycline Allergy Mild FACIAL Verified 05/14/25 01:00 EDEMA Sulfa (Sulfonamide AdvReac Intermediate Skin Rash Unverified 05/14/25 01:00 Antibiotics) environmental Allergy Other (See Uncoded 05/14/25 01:00 Comment) General Stated Complaint: Nk/Back Pain ANDREA: 3 Review of Systems Narrative: see HPI Exam Narrative Exam Narrative: General: Alert, well appearing, well nourished Head: Normocephalic, atraumatic Neck: Trachea midline, ?Neck supple. Cardiac: ?RRR, no murmurs appreciated. Resp: No respiratory distress. Speaking in full sentences. Abd: ?Soft, non-distended, nontender : ?No suprapubic tenderness. No CVA tenderness. Back: No midline tenderness. Extremities: ?No deformities.? No peripheral edema. Neuro: ? GCS 15.? Motor- 5/5 strength symmetric bilateral lower extremities including hipflexors/extensors, knee flexors/extensors, ankle dorsiflexors and planter flexors. Sensation- ?Intact to light touch BLE; subjectively diminished throughout LLE compared to RLE. No saddle anesthesia. Reflexes- 2/4 achilles & patellar, no clonus SLR + on left. Course Vital Signs Vital signs: Vital Signs Temperature 36.7 C 05/13/25 23:12 Pulse 69 05/13/25 23:12 Respiratory Rate 18 05/13/25 23:12 Blood Pressure 178/90 H 05/13/25 23:12 Pulse Oximetry 98 05/13/25 23:12 Temperature 36.7 C 05/13/25 23:12 Temperature Source Oral 05/13/25 23:12 Pulse 69 05/13/25 23:12 Respiratory Rate 18 05/13/25 23:12 Blood Pressure 178/90 H 05/13/25 23:12 Blood Pressure Position Sitting 05/13/25 23:12 Pulse Oximetry 98 05/13/25 23:12 Oxygen Delivery Method Room Air 05/13/25 23:12 Oxygen Flow Rate 0 05/13/25 23:12 Pain Level 9 05/13/25 23:12 Medical Decision Making 69yo F with presenting with worsening of chronic sciatic back pain. Vital signs reassuring on arrival; subjective numbness to LLE on exam otherwise normal neurologic exam and no midline tenderness. History and exam not concerning for acute fracture, cauda equina, spinal epidural abscess or hematoma. [facility] records reviewed; had XR L-spine at the onset of her symptoms in 2022 which showed degenerative disc disease L4-L5. Would not do further emergent workup or transfer for MRI at this time (defer any additional imaging to PCP). Will treat symptoms with tylenol, toradol (is on prednisone; single dose is acceptable risk/benefit), additional gabapentin, lidocaine patch, and lorazapam. On reassessment patient reports pain has improved though is still present. Ambulated in department independently steadily; does report it is still quite painful to ambulate. Would like to go home and try to sleep. Advised close PCP followup for further workup and management. Discharged home; discharge instructions and return precautions were reviewed with patient who verbalized understanding. All questions were answered and she is in full agreement with the plan. PFSH All Active Problems (Updated 05/14/25 @ 00:57 by Colleen Cline MD) Sciatica (Acute) Right carpal tunnel syndrome (Acute) s/p right ECTR DOS: 02/24/25 Paresthesia of hand (Acute) Impairment of speech discrimination (Acute) Asymmetrical sensorineural hearing loss (Acute) Bilateral sensorineural hearing loss (Acute) Medical History History of adenomatous polyp of colon Sleep apnea Chorioretinal scar Depression Obesity Hypomagnesemia Hyperlipidemia Cutaneous sarcoidosis Surgical History Colonoscopy - MAC (05/28/17) Social History Smoking/Tobacco Use Status: Never Smoking risk assessment performed?: Yes Alcohol Intake: current Alcohol Intake frequency: a few times a month Alcohol type: wine Drug use: Never Substance use type: does not use Housing: house Do you feel safe at home: Yes Do you feel safe in your relationship?: Yes
[2025-05-14] MEDS: Acetaminophen 500 MG TAB 1000 MG PO (00:13)
[2025-05-14] MEDS: LORazepam 1 MG TAB PO (00:13)
[2025-05-14] MEDS: Gabapentin 300 MG CAP 600 MG PO (00:13)
[2025-05-14] MEDS: Ketorolac 15 MG/ML VIAL IM (00:14)
[2025-05-14] MEDS: Lidocaine 5% Patch 1 PATCH TP (00:14)
== END 2025-05-14 01:12 | disposition home or self-care (01) ==
PROVIDERS: Emergency Provider Student in an Organized Health Care Education/Training Program; PCP Nurse Practitioner Family
DX: M54.32 Sciatica, left side (principal)
CPT/HCPCS: 96372; 99284; 99283; J1885

== ENCOUNTER 2025-06-08 00:27 | Outpatient (CLI) | payer MEDICARE, BC, SELFPAY ==
--- NOTE | 2025-06-08 | DI.MRI_ITS ---
Exam(s) MR LUMBAR SPINE WO EXAM: MR LUMBAR SPINE WO CLINICAL HISTORY: ACUTE L LBP W L SIDED SCIATICA. LUMBAGO W SCIATICA M54.42. TECHNIQUE: Multiplanar multisequence MRI of the Lumbar spine was performed. COMPARISON: CR XR LUMBAR SPINE COMPLETE from 05/28/2023 FINDINGS: Bones: The last intervertebral disc space is designated the L5/S1 level for the numbering purpose of this examination. The vertebral body heights are well maintained. Alignment: Unremarkable. The marrow signal characteristics are unremarkable. Cord: The conus tip ends at the T12 level. It is of normal size and signal intensity. T12-L1: No focal disc herniation is present. No central spinal canal stenosis.No neural foraminal stenosis. L1-2: No focal disc herniation is present. No central spinal canal stenosis.No neural foraminal stenosis. L2-3: No focal disc herniation is present. There is moderate loss of disc height and broad-based disc bulging. There are facet degenerative changes and ligamentous hypertrophy combining to produce moderate central canal stenosis. There is no significant neural foraminal narrowing. L3-4: No focal disc herniation is present. There is [id number] loss of disc height and broad-based disc bulging. There are facet degenerative changes and ligamentous hypertrophy. There is resultant [id number] central canal stenosis. L4-5: There is a disc herniation with extruded disc material posterior to the L5 vertebral body with extension into the left L5-S1 neural foramen. This disc herniation could arise from either the L 4 5 disc or the L5-S1 disc. There is severe loss disc height and circumferentially projecting osteophytes. There are facet degenerative changes and ligamentous hypertrophy combining with the disc osteophytes to produce severe central canal stenosis. There is also severe bilateral neural foraminal narrowing. L5-S1: The disc height is maintained. No central spinal canal stenosis.No neural foraminal stenosis. The visualized SI joints and sacrum are unremarkable. Soft tissues: The paraspinal soft tissues are unremarkable. IMPRESSION: Left-sided lateral disc herniation posterior to the L5 vertebral body with extension into the left L5-S1 neural foramen. This may arise from the L4-5 disc level or L5-S1 disc level. Severe degenerative changes at L4-5 causing severe central canal stenosis. Moderate central canal stenosis is present at L2-3. DATA REPOSITORY:
== END 2025-06-08 00:47 ==
LOC: DI 00:27
PROVIDERS: PCP Nurse Practitioner Family; Visit Provider Family Medicine
DX: M54.42 Lumbago with sciatica, left side (principal); M51.26 Other intervertebral disc displacement, lumbar region; M48.061 Spinal stenosis, lumbar region without neurogenic claudication
CPT/HCPCS: 72148

== ENCOUNTER 2025-07-13 03:27 | Outpatient (CLI) | payer MEDICARE, BC, SELFPAY ==
--- NOTE | 2025-07-13 12:50 | DI.MAMMO_ITS ---
Exam(s) MAMMO SCREENING EXAM: MAMMO SCREENING CLINICAL HISTORY: Screening, Z12.31 TECHNIQUE: Bilateral full field digital CC and MLO mammographic images were obtained with 3D tomosynthesis and utilizing computer aided detection (CAD). COMPARISON: Comparison is made with prior examinations. FINDINGS: Masses/Architectural Distortion: No suspicious masses or areas of architectural distortion are present. Microcalcifications: No suspicious pleomorphic-type are seen. Skin Thickening/Nipple Retraction: None. IMPRESSION: 1. No significant interval change with no specific features of malignancy noted. 2. Unless there is more urgent need, screening mammography is recommended, as per [place] [employer] guidelines. BI-RADS Category 1 - Negative Breast Density - Category B - There are scattered areas of fibroglandular density. Breast density Category C or D implies that the patient has dense breast tissue. Dense breast tissue can make it harder to find cancer on a mammogram. Dense breast tissue is also associated with an increased risk of breast cancer. This information about the result of the mammogram report was provided to the patient to raise their awareness. Use this report when you speak with the patient about their risks for breast cancer, which includes their family history. At that time, you may recommend additional screening tests (Ultrasound or MRI) as these tests may add significant information. A negative radiographic report should not delay biopsy if a dominant or clinically suspicious mass is present. Up to ten percent of cancers are not identified on mammography. A negative report may reinforce clinical impression. Adenosis and dense breasts may obscure an underlying neoplasm. False positive reports average 6 to 10%. Patient will receive a letter notifying them of these results.
== END 2025-07-13 03:47 ==
LOC: DI 03:27
PROVIDERS: PCP Nurse Practitioner Family; Visit Provider Nurse Practitioner Family
DX: Z12.31 Encounter for screening mammogram for malignant neoplasm of breast (principal); R92.323 Mammographic fibroglandular density, bilateral breasts
CPT/HCPCS: 77063; 77067

== ENCOUNTER 2025-08-06 16:02 | Outpatient (REF) | payer MEDICARE, BC, SELFPAY ==
--- NOTE | 2025-08-06 13:50 | SKI_PTH ---
PATIENT: Toine Poole LOC: [facility]#:[id number] AGE/SX: 70/F ROOM: RE08/06/[address]: Viki Roebrts : 1955 BED: DIS: 08/06/2025 SPEC #: [id number] RECD: 08/07/25 12:08 STATUS: [place] REShasha #: [id number] ANGELES: 08/06/25 13:[address]: Viki Roberts DEPT: Surgical Specimen RECD BY: Lizet Pierce Tissues: 1 - SKIN BIOPSY(SHAVE/PUNCH) 2 - SKIN BIOPSY(SHAVE/PUNCH) Procedures: IMMUNOPEROXIDASE STAIN SKIN LEVEL 4 Comments: [id number]
== END 2025-08-06 16:03 | disposition home or self-care (01) ==
LOC: NCHCN 16:02
PROVIDERS: PCP Nurse Practitioner Family; Visit Provider Nurse Practitioner Family
DX: L25.9 Unspecified contact dermatitis, unspecified cause (principal)
CPT/HCPCS: 88305; 88361

== ENCOUNTER 2025-08-13 17:37 | Outpatient (REF) | payer MEDICARE, BC, SELFPAY ==
[2025-08-13 15:16] LABS: Abs Immature Grans 0.01 10^3/uL (0.0-0.06); HCT 36.9 % (36.0-46.0); HGB 12.1 g/dL (11.2-15.7); Immature Grans % 0.2 %; MCH 30.6 pg (27.0-33.0); MCHC 32.8 % (32.0-36.0); MCV 93 fL (80-95); MPV 10.4 fL (8.0-11.0); Platelet Count 247 10^3/uL (130-400); RBC 3.95 10^6/uL (3.93-5.22); RDW 13.0 % (11.7-14.6); RDW-SD 45.0 fL; WBC 4.53 10^3/uL (4.4-10.8)
[2025-08-13 15:24] LABS: Anion Gap 7.3 mmol/L (3-11); BUN 17 mg/dL (7-18); CO2 28.7 mmol/L (21.0-32.0); Calcium 9.1 mg/dL (8.5-10.1); Chloride 97 mmol/L (98-107); Estimated GFR 97.71 (mL/min/1.73m2); Glucose 104 mg/dL (74-106); Magnesium 1.9 mg/dL (1.8-2.4); Potassium 4.9 mmol/L (3.5-5.1); Sodium 133 mmol/L (136-145)
== END 2025-08-13 17:38 | disposition home or self-care (01) ==
LOC: NCHCN 17:37
PROVIDERS: PCP Nurse Practitioner Family; Visit Provider Nurse Practitioner Family
DX: K30 Functional dyspepsia (principal); E87.1 Hypo-osmolality and hyponatremia; D72.819 Decreased white blood cell count, unspecified
CPT/HCPCS: 80048; 83735; 85025

== ENCOUNTER 2025-10-01 12:15 | Outpatient (REF) | payer MEDICARE, BC, SELFPAY ==
[2025-10-01 16:13] LABS: HCT 34.9 % (36.0-46.0); HGB 11.6 g/dL (11.2-15.7); MCH 30.5 pg (27.0-33.0); MCHC 33.2 % (32.0-36.0); MCV 92 fL (80-95); MPV 10.5 fL (8.0-11.0); Platelet Count 212 10^3/uL (130-400); RBC 3.80 10^6/uL (3.93-5.22); RDW 12.7 % (11.7-14.6); RDW-SD 42.7 fL; WBC 4.27 10^3/uL (4.4-10.8)
[2025-10-01 18:01] LABS: ALT 22 U/L (10-49); AST 25 U/L (<34); Albumin 4.1 g/dL (3.4-5.0); Alkaline Phosphatase 52 U/L (46-116); Anion Gap 8 mmol/L (3-11); BUN 14 mg/dL (9-23); Bilirubin, Total 0.50 mg/dL (0.2-1.2); CO2 27.0 mmol/L (20.0-31.0); Calcium 9.0 mg/dL (8.3-10.6); Chloride 100 mmol/L (98-107); Glucose 88 mg/dL (74-106); Potassium 4.7 mmol/L (3.5-5.1); Sodium 135 mmol/L (136-145); Total Protein 6.5 g/dL (5.7-8.2)
== END 2025-10-01 12:16 | disposition home or self-care (01) ==
LOC: NCHCN 12:15
PROVIDERS: PCP Nurse Practitioner Family; Visit Provider Nurse Practitioner Family
DX: Z01.818 Encounter for other preprocedural examination (principal)
CPT/HCPCS: 80053; 85027